=== PATIENT | female | born 1970 | race Caucasian/White ===

== ENCOUNTER → 2016-05-25 | Outpatient (REF) ==
[~2016-05-25] MED LIST: CLAR10CA3 PO; FURO40TA2 PO; GABA600T PO; IMIT50TA PO; MIRA3350 PO; PERC5TAB6 PO; VITA10002 PO; VITA50003 PO; albuterol inh INH
--- NOTE | 2016-05-25 11:01 | REP ---
CERVICAL SPINE SERIES: Three views. HISTORY: Disability. Degenerative disc disease. FINDINGS: Oxygen tubing is seen. The patient declined to remove metallic earrings for the exam. Lateral view demonstrates normal alignment. There is degenerative disc narrowing at C5-6 and C6-7 and mild discogenic spurring is seen at C4-5. There is mild osteoarthritic facet hypertrophy bilaterally at C2-3, C3-4 and C4-5. Open mouth odontoid view is unremarkable. IMPRESSION: Degenerative disc and osteoarthritic facet changes. Signed by Don Magaña MD 05/25/2016 08:10 P
--- NOTE | 2016-05-25 11:05 | REP ---
Lumbar spine series: Three views. History: Degenerative disc disease. Disability. Comparison study December 23, 2013. Findings: There is a dextroconvex scoliotic curve in the lumbar spine on the AP radiograph. Lumbar vertebral body heights are preserved. Alignment is otherwise normal. There is degenerative disc narrowing at L3-4 and L4-5 with early discogenic spurring at these two levels as well as at L5-S1. Pedicles and posterior elements appear intact. There is no evidence of spondylolysis or spondylolisthesis. Sacrum and SI joints are intact. Psoas margins are symmetric. There are clips in right upper quadrant of the abdomen. Impression: Scoliosis and degenerative disc changes. Findings unchanged radiographically from December 23, 2013. Signed by Don Magaña MD 05/25/2016 08:10 P
== END ==
LOC: M SMT 09:44
PROVIDERS: ATTEND Internal Medicine
DX: Z02.1 Encounter for pre-employment examination (principal)

== ENCOUNTER → 2016-06-01 | Outpatient (REF) | payer OTHER ==
[2016-06-01 11:07] LABS: BASO % 0.6 % (0.0-1.0); EOS # 0.1 K/mm3 (0.0-0.50); EOS % 1.5 % (0.0-3.0); LARGE UNSTAINED CELL # 0.2 K/mm3 (0.0-0.4); LARGE UNSTAINED CELL % 2.4 % (0.0-4.0); LYMPH # 1.1 K/mm3 (1.5-4.5); LYMPH % 16.2 % (24.0-44.0); MEAN CORPUSCULAR HEMOGLOBIN 34.2 pg (27.0-33.0); MEAN CORPUSCULAR HGB CONC 35.4 g/dl (32.0-36.5); MEAN CORPUSCULAR VOLUME 96.6 fl (80.0-96.0); MONO # 0.3 K/mm3 (0.0-0.8); MONO % 4.7 % (0.0-5.0); NEUTROPHILS % 74.6 % (36.0-66.0); PLATELET COUNT, AUTOMATED 202 k/mm3 (150-450); RED CELL DISTRIBUTION WIDTH 12.6 % (11.5-14.5); WHITE BLOOD COUNT 6.7 K/mm3 (4.0-10.0)
[2016-06-01 11:30] LABS: ALBUMIN 3.7 GM/DL (3.2-5.2); ALBUMIN/GLOBULIN RATIO 1.06 (1.00-1.93); ALKALINE PHOSPHATASE 82 U/L (45-117); ALT/SGPT 29 U/L (12-78); ANION GAP 9 MEQ/L (8-16); AST/SGOT 15 U/L (15-37); BILIRUBIN,TOTAL 0.3 MG/DL (0.2-1.0); BLOOD UREA NITROGEN 13 MG/DL (7-18); CALCIUM LEVEL 9.3 MG/DL (8.5-10.1); CARBON DIOXIDE LEVEL 33 MEQ/L (21-32); CHLORIDE LEVEL 100 MEQ/L (98-107); CHOLESTEROL LEVEL 219 MG/DL (<200); CREATININE FOR GFR 0.93 MG/DL (0.55-1.02); GLOMERULAR FILTRATION RATE > 60.0 (>58); GLUCOSE, FASTING 121 MG/DL (70-105); POTASSIUM SERUM 3.6 MEQ/L (3.5-5.1); SODIUM LEVEL 142 MEQ/L (136-145); TOTAL PROTEIN 7.2 GM/DL (6.4-8.2); TRIGLYCERIDES LEVEL 108 MG/DL (<150)
[2016-06-01 11:50] LABS: ERYTHROCYTE SEDIMENTATION RATE 17 mm/hr (0-20)
== END ==
LOC: M SFHCPLAZ 07:59
PROVIDERS: ATTEND Family Medicine
DX: D86.9 Sarcoidosis, unspecified (principal); E55.9 Vitamin D deficiency, unspecified; R73.01 Impaired fasting glucose

== ENCOUNTER 2016-06-02 08:04 | Outpatient (RCR) | payer OTHER | END 2016-06-07 | disposition home or self-care (01) | LOC: M PR 08:04 | PROVIDERS: ATTEND Physician Assistant Medical | DX: Z51.89 Encounter for other specified aftercare (principal); D86.9 Sarcoidosis, unspecified ==

== ENCOUNTER 2016-06-29 09:30 | Outpatient (RCR) | payer OTHER | END 2016-07-05 | LOC: M PR 09:30 | PROVIDERS: ATTEND Physician Assistant Medical | DX: D86.9 Sarcoidosis, unspecified (principal) ==

== ENCOUNTER 2016-08-03 12:55 | Outpatient (RCR) | payer OTHER | END 2016-08-05 | LOC: M PR 12:55 | PROVIDERS: ATTEND Physician Assistant Medical | DX: Z51.89 Encounter for other specified aftercare (principal); D86.9 Sarcoidosis, unspecified ==

== ENCOUNTER 2016-08-08 09:39 | Outpatient (RCR) | payer OTHER | END 2016-09-04 | LOC: M PR 09:39 | PROVIDERS: ATTEND Physician Assistant Medical | DX: Z51.89 Encounter for other specified aftercare (principal); D86.9 Sarcoidosis, unspecified ==

== ENCOUNTER → 2016-08-26 | Outpatient (REF) | payer OTHER ==
[2016-08-26 11:49] LABS: BASO % 0.7 % (0.0-1.0); EOS # 0.1 K/mm3 (0.0-0.50); EOS % 1.8 % (0.0-3.0); LARGE UNSTAINED CELL # 0.1 K/mm3 (0.0-0.4); LARGE UNSTAINED CELL % 2.5 % (0.0-4.0); MEAN CORPUSCULAR HEMOGLOBIN 34.6 pg (27.0-33.0); MEAN CORPUSCULAR VOLUME 98.9 fl (80.0-96.0); MONO # 0.4 K/mm3 (0.0-0.8); MONO % 6.9 % (0.0-5.0); NEUTROPHILS # 3.5 K/mm3 (1.8-7.7); NEUTROPHILS % 70.2 % (36.0-66.0); PLATELET COUNT, AUTOMATED 226 k/mm3 (150-450); RED CELL DISTRIBUTION WIDTH 13.1 % (11.5-14.5)
[2016-08-26 12:02] LABS: ALBUMIN 3.6 GM/DL (3.2-5.2); ALKALINE PHOSPHATASE 85 U/L (45-117); ALT/SGPT 31 U/L (12-78); ANION GAP 9 MEQ/L (8-16); AST/SGOT 23 U/L (15-37); BILIRUBIN,TOTAL 0.4 MG/DL (0.2-1.0); BLOOD UREA NITROGEN 15 MG/DL (7-18); CALCIUM LEVEL 9.2 MG/DL (8.5-10.1); CARBON DIOXIDE LEVEL 29 MEQ/L (21-32); CHLORIDE LEVEL 102 MEQ/L (98-107); CREATININE FOR GFR 0.95 MG/DL (0.55-1.02); GLOMERULAR FILTRATION RATE > 60.0 (>58); GLUCOSE, FASTING 120 MG/DL (70-105); POTASSIUM SERUM 3.7 MEQ/L (3.5-5.1); SODIUM LEVEL 140 MEQ/L (136-145); TOTAL PROTEIN 7.2 GM/DL (6.4-8.2)
[2016-08-26 12:09] LABS: VITAMIN B12 LEVEL 776 PG/ML (247-911)
[2016-08-26 12:15] LABS: ERYTHROCYTE SEDIMENTATION RATE 20 mm/hr (0-20)
== END ==
LOC: M SFHCPLAZ 09:40
PROVIDERS: ATTEND Family Medicine
DX: D86.9 Sarcoidosis, unspecified (principal); R73.01 Impaired fasting glucose; E53.8 Deficiency of other specified B group vitamins

== ENCOUNTER 2016-09-14 13:35 | Outpatient (RCR) | payer OTHER ==
[2016-09-15] MEDS ORDERED: BREO1INH3 INH ×3 (06:55→11:45)
[2016-09-15] MEDS ORDERED: PANT40TA2 PO (06:56)
[2016-09-15] MEDS ORDERED: CONT1TAB PO (06:57)
[2016-09-15] MEDS ORDERED: PRED10PA PO (06:59)
[2016-09-15] MEDS ORDERED: PRED5EL PO (06:59)
[2016-09-15] MEDS ORDERED: plaquenil PO (07:02)
[2016-09-15] MEDS ORDERED: VITA200028 PO (07:04)
[2016-09-15] MEDS ORDERED: NEUR600T PO (07:06)
[2016-09-15] MEDS ORDERED: LATA5OPD OD (07:07)
[2016-09-15] MEDS ORDERED: DORZ2SOL5 OU (07:08)
[2016-09-15] MEDS ORDERED: INCR1INH IN ×2 (07:09→07:59)
[2016-09-15] MEDS ORDERED: CYMB60CA3 PO (07:10)
[2016-09-15] MEDS ORDERED: ALBU17IN INH (07:59)
[2016-09-15] MEDS ORDERED: IPRASOL4 INH (07:59)
[2016-09-15] MEDS ORDERED: XALA0.002 OU (07:59)
[2016-09-15] MEDS ORDERED: DRIS50002 PO (11:29)
[2016-09-15] MEDS ORDERED: HYDR200T3 PO (11:45)
[2016-09-15] MEDS ORDERED: PRED1TABL PO (11:45)
[2016-09-15] MEDS ORDERED: PRED5TA PO (11:45)
[2016-09-15] MEDS ORDERED: SYSTSOL14 OU (11:46)
[2016-09-15] MEDS ORDERED: GABA-282 PO (12:11)
[2016-09-22] MEDS ORDERED: PRED20TA PO (10:30)
== END 2016-10-05 ==
LOC: M PR 13:35
PROVIDERS: ATTEND Physician Assistant Medical
DX: Z51.89 Encounter for other specified aftercare (principal); D86.9 Sarcoidosis, unspecified

== ENCOUNTER 2016-09-15 06:30 | Inpatient (IN) | payer OTHER ==
[~2016-09-15] VITALS: Ht 167.6 cm; Wt 94.2 kg
[2016-09-15] MEDS ORDERED: dexameTHASONE 20 MG/5 ML VIAL (J1100) IV ONE (06:45)
[2016-09-15] MEDS ORDERED: BREO1INH3 INH ×3 (06:55→11:45)
[2016-09-15] MEDS ORDERED: PANT40TA2 PO (06:56)
[2016-09-15] MEDS: LEVALBUTEROL 1.25 MG/0.5 ML CONCENTRATE NEB INH SCH ×3 (06:57→07:15)
[2016-09-15] MEDS ORDERED: CONT1TAB PO (06:57)
[2016-09-15] MEDS ORDERED: PRED10PA PO (06:59)
[2016-09-15] MEDS ORDERED: PRED5EL PO (06:59)
[2016-09-15] MEDS ORDERED: plaquenil PO (07:02)
[2016-09-15] MEDS ORDERED: VITA200028 PO (07:04)
[2016-09-15 07:05] LABS: VENOUS BASE EXCESS 2.2 (-2.0-2.0); VENOUS O2 SATURATION 80.8 % (60.0-80.0); VENOUS PARTIAL PRESSURE CO2 41.3 mmHg (38.0-50.0); VENOUS PARTIAL PRESSURE O2 43.9 mmHg (30.0-50.0)
[2016-09-15] MEDS ORDERED: NEUR600T PO (07:06)
[2016-09-15 07:07] LABS: BASO # 0.1 K/mm3 (0.0-0.2); BASO % 0.7 % (0.0-1.0); EOS # 0.2 K/mm3 (0.0-0.50); EOS % 1.6 % (0.0-3.0); LARGE UNSTAINED CELL # 0.2 K/mm3 (0.0-0.4); LARGE UNSTAINED CELL % 1.7 % (0.0-4.0); LYMPH # 1.2 K/mm3 (1.5-4.5); LYMPH % 11.2 % (24.0-44.0); MEAN CORPUSCULAR HEMOGLOBIN 35.3 pg (27.0-33.0); MEAN CORPUSCULAR HGB CONC 35.2 g/dl (32.0-36.5); MEAN CORPUSCULAR VOLUME 100.3 fl (80.0-96.0); MONO # 0.5 K/mm3 (0.0-0.8); MONO % 5.2 % (0.0-5.0); NEUTROPHILS # 7.3 K/mm3 (1.8-7.7); NEUTROPHILS % 79.6 % (36.0-66.0); PLATELET COUNT, AUTOMATED 220 k/mm3 (150-450); RED CELL DISTRIBUTION WIDTH 13.2 % (11.5-14.5); WHITE BLOOD COUNT 9.1 K/mm3 (4.0-10.0)
[2016-09-15] MEDS ORDERED: LATA5OPD OD (07:07)
[2016-09-15] MEDS ORDERED: DORZ2SOL5 OU (07:08)
[2016-09-15] MEDS ORDERED: INCR1INH IN ×2 (07:09→07:59)
[2016-09-15] MEDS ORDERED: CYMB60CA3 PO (07:10)
--- NOTE | 2016-09-15 07:24 | REP ---
Clinical: Dyspnea. Comparison: 12/03/2015. Findings: Cardiac silhouette is normal for portable technique. Mild hilar prominence along with chronic stable interstitial changes are similar to prior examination and consistent with the previously given history of sarcoidosis. No focal acute consolidation, obvious effusion or pneumothorax identified. Skeletal structures intact. Impression: Chronic stable changes consistent with the previously given history of sarcoidosis. No obvious acute cardiopulmonary process appreciated. Signed by Je Li MD 09/15/2016 07:15 A
[2016-09-15 07:26] LABS: ANION GAP 10 MEQ/L (8-16); BLOOD UREA NITROGEN 12 MG/DL (7-18); CALCIUM LEVEL 8.6 MG/DL (8.5-10.1); CARBON DIOXIDE LEVEL 26 MEQ/L (21-32); CHLORIDE LEVEL 104 MEQ/L (98-107); GLOMERULAR FILTRATION RATE > 60.0 (>58); GLUCOSE, FASTING 118 MG/DL (70-105); POTASSIUM SERUM 3.6 MEQ/L (3.5-5.1); SODIUM LEVEL 140 MEQ/L (136-145)
[2016-09-15] MEDS ORDERED: IPRATROPIUM 0.5MG/ALBUTEROL 2.5MG INH SOL UD 3ML (DUONEB)(J7620) NEB ONE ×2 (07:30→11:30)
[2016-09-15] MEDS ORDERED: XALA0.002 OU (07:59)
[2016-09-15] MEDS ORDERED: IPRASOL4 INH (07:59)
[2016-09-15] MEDS ORDERED: ALBU17IN INH (07:59)
[2016-09-15] MEDS: FUROSEMIDE 40 MG TAB PO SCH (09:00)
[2016-09-15 09:43] VITALS: O2SAT 89
[2016-09-15] MEDS ORDERED: DRIS50002 PO (11:29)
[2016-09-15] MEDS ORDERED: PRED5TA PO (11:45)
[2016-09-15] MEDS ORDERED: HYDR200T3 PO (11:45)
[2016-09-15] MEDS ORDERED: PRED1TABL PO (11:45)
[2016-09-15] MEDS ORDERED: SYSTSOL14 OU (11:46)
[2016-09-15] MEDS ORDERED: GABA-282 PO (12:11)
[2016-09-15] MEDS: IPRATROPIUM 0.5MG/ALBUTEROL 2.5MG INH SOL UD 3ML (DUONEB)(J7620) NEB SCH ×2 (14:00→20:04)
[2016-09-15] MEDS: GABAPENTIN 300 MG CAP PO SCH ×2 (15:14→20:51)
[2016-09-15] MEDS: DULoxetine 30 MG CAP (CYMBALTA) PO SCH (15:14)
[2016-09-15] MEDS: LevoFLOXacin IV 750 MG in APPROPRIATE DILUENT 1 EA IV SCH (15:14)
[2016-09-15 15:15] VITALS: BP 126/73
[2016-09-15 16:20] VITALS: BP 119/69
[2016-09-15] MEDS: POLYVINYL ALCOHOL OPHTH SOLN 15 ML(LIQUITEARS) OU SCH ×2 (18:34→20:51)
[2016-09-15] MEDS: HYDROXYCHLOROQUINE 200 MG TAB PO SCH (18:34)
[2016-09-15] MEDS: ACETAMINOPHEN TAB 650MG DOSE (2X325MG) PO PRN (19:46)
[2016-09-15] MEDS: CODEINE SULFATE 30 MG TAB PO PRN (19:46)
[2016-09-15 19:56] VITALS: BP 116/69
[2016-09-15] MEDS: CLOBETASOL PROP 0.05% OINT 30 GM TOP SCH (20:51)
[2016-09-15] MEDS: COSOPT OCUMETER PLUS 10ML (DORZOLAMIDE/TIMOLOL) OU SCH (20:51)
[2016-09-15] MEDS: LATANOPROST 0.005% OPHTH SOLN 2.5 ML OU SCH (20:51)
[2016-09-15] MEDS: PANTOPRAZOLE 40MG TAB (PROTONIX) PO SCH (20:51)
[2016-09-15] MEDS: methylPREDNISolone INJ 40 MG/1 ML VIAL (J2920) IV SCH (20:51)
--- NOTE | 2016-09-15 21:27 | HPE ---
DATE OF ADMISSION: 09/15/2016 CHIEF COMPLAINT: Cough and dyspnea. HISTORY: A 45-year-old female with history of sarcoidosis. Has been deemed to be inactive at this time with the sarcoid, and prednisone dose has begun to be tapered. About 11 days ago her dose was reduced from 10 mg of prednisone to 9, and it seems unlikely that this tiny decrement for an inactive sarcoid patient would suddenly trigger increased cough and wheezing, rather it seems more likely that this episode may represent an acute respiratory illness. In fact, her significant other is with her today and admits that he had a bronchitic productive cough beginning about 2 days ago. In the emergency department (ED) she was demonstrably hypoxic with exertion, following oxygen saturations on routine oxygen delivery of 2 liters per nasal cannula and extremely dyspneic with minimal exertion, prolonged paroxysmal with coughing, which left her breathless for several minutes. Was observed on multiple occasions; therefore, it was felt patient too ill to be discharged home with current findings. PAST MEDICAL HISTORY: Includes: 1. 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 2. History of degenerative joint disease of lumbar spine with lower extremity radiculopathy, L3-4, L4-5 disc bulges with compressions and L5-S1 disc herniation with compression. 3. Chronic constipation. 4. History of smoking addiction. 5. Chronic hoarseness. 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 Barron. 6. Impaired fasting glucose. 7. Recurrent gingivostomatitis. 8. Grade 1 diastolic dysfunction with trace pericardial effusion in March 2016 with a transthoracic echocardiogram (TTE) performed in hospital, Dr. Oliver. SURGICAL HISTORY: Includes cholecystectomy for benign disease in July 2015. FAMILY HISTORY: Remarkable for parents with stroke and myocardial infarction (NE) history and mother with osteoporosis. No cancers in first-degree relatives. Patient is a former smoker who quit a few years ago, which may be part of the reason for weight gain in addition to prednisone his. CURRENT MEDICATIONS: Include: - Incruse Ellipta one inhalation daily - DuoNeb - Protonix 20 mg two tablets twice a day - Breo Ellipta one puff daily - prednisone 9 mg daily - Plaquenil 200 mg twice a day - Ventolin as needed - Xalatan 0.005% - gabapentin 600 mg three times a day - Cymbalta 60 mg daily - Contrave 8/90 one tablet twice a day - calcium with D one by mouth twice a day - oxygen 2 liters - vitamin B12 at 1 mg daily - MiraLax 17 grams twice a day as required - loratadine 10 mg daily - Drisdol 50,000 weekly - Cosopt 22.3/6.8 one drop to affected eye twice a day - Imitrex 25 mg as needed migraine; repeat after 1 hour if needed - furosemide 40 mg daily - flaxseed 1000 mg daily - She had a Tdap booster in 2012. - She had influenza vaccine in January 2013. - She had Prevnar vaccine in March 2016. REVIEW OF SYSTEMS: At this time, she has no headache or dizziness. She has no substernal chest pain. No nausea, vomiting, diarrhea, constipation, dysuria, frequency, numbness, tingling, loss of consciousness, fainting, or numbness. No trouble with ambulation. No seizures. No syncope. Illness began essentially overnight with severe cough this morning, which brought her to the ED. Her athletics director is Dr. Tidwell in [place]. Her engineer design and construction is Dr. Mcgee. Cloth Baler is Dr. Cho. Dr. Cox is her primary care provider. PHYSICAL EXAMINATION: Blood pressure 107/63, pulse is 98, respiratory 24, temperature 99.2, 94% room air. Most recent 89% earlier today. She was observed to desaturate with exertion. GENERAL: Well-developed, well-nourished, obese white female in mild respiratory distress. She is pleasant, cooperative. HEENT: Shows minimal cushingoid changes. No oral lesions. No neck mass or thyroid enlargement. HEART: Regular rhythm without murmurs, gallops, or rubs. LUNGS: Good air flow throughout. Minimally reduced airflow observed with no rales and no wheezing. At the end of her coughing paroxysm, she has expiratory noises, which were heard best over her larynx. Speech was clear. Voice was not particularly hoarse. ABDOMEN: Obese. No guarding, mass, or rebound. No costovertebral angle (CVA) tenderness. EXTREMITIES: Show no edema. Pulses are intact throughout. She does have circular rash on her right anterior thigh and left forearm, which is more of an oval rash. These are minimally indurated, slightly reddened, and she says intermittently itchy. NEUROLOGIC: Alert, pleasant. No focal deficits. Mood is neutral. Affect appropriate. LABORATORY DATA: White count 9100, hemoglobin 13.9, somewhat macrocytic. Indices 100.3 MCV. Electrolytes were within normal limits. Glucose 118. CK was negative, MB negative. Troponin negative. BNP 47. Venous blood gas showed pH of 7.429, pCO2 of 41.3, pO2 of 43.9. Results are entirely normal. IMAGING STUDIES: Chest x-ray: Chronic stable changes. Mild hilar prominence noted on exam. These are chronic findings; nothing new. ASSESSMENT: Increased respiratory symptoms with cough, hypoxia with exertion, paroxysms of cough suggestive of bronchitis. Cannot rule out pertussis at this time despite recent immunization. PLAN: Respiratory panel was sent. Sputum culture and sensitivity was sent. We will prescribe Levaquin 750 IV every 24 hours pending culture results. Admit with oxygen support and nebulizers. Prednisone steroid will be boosted temporarily. Anticipate rapid return to tapering schedule with prednisone once this acute presumably infectious episode has resumed. Exacerbation of sarcoid seems less likely considering her recent quiescent state and abrupt onset of symptoms.
[2016-09-15 23:55] VITALS: BP 127/65
[2016-09-16] MEDS: IPRATROPIUM 0.5MG/ALBUTEROL 2.5MG INH SOL UD 3ML (DUONEB)(J7620) NEB SCH ×4 (02:16→20:27)
[2016-09-16 04:00] VITALS: BP 103/65
[2016-09-16] MEDS: ALBUTEROL SULFATE 2.5 MG/0.5 ML INH NEB SOLN NEB PRN ×2 (04:08→11:14)
[2016-09-16] MEDS: ACETAMINOPHEN TAB 650MG DOSE (2X325MG) PO PRN ×2 (05:13→08:59)
[2016-09-16 05:41] LABS: BASO # 0.1 K/mm3 (0.0-0.2); BASO % 0.7 % (0.0-1.0); LARGE UNSTAINED CELL # 0.1 K/mm3 (0.0-0.4); LARGE UNSTAINED CELL % 1.1 % (0.0-4.0); LYMPH # 0.4 K/mm3 (1.5-4.5); LYMPH % 3.8 % (24.0-44.0); MEAN CORPUSCULAR HEMOGLOBIN 35.1 pg (27.0-33.0); MEAN CORPUSCULAR HGB CONC 34.8 g/dl (32.0-36.5); MEAN CORPUSCULAR VOLUME 100.8 fl (80.0-96.0); MONO # 0.4 K/mm3 (0.0-0.8); MONO % 4.6 % (0.0-5.0); NEUTROPHILS # 7.9 K/mm3 (1.8-7.7); NEUTROPHILS % 89.8 % (36.0-66.0); PLATELET COUNT, AUTOMATED 198 k/mm3 (150-450); WHITE BLOOD COUNT 8.8 K/mm3 (4.0-10.0)
[2016-09-16 06:04] LABS: ALBUMIN 3.2 GM/DL (3.2-5.2); ALBUMIN/GLOBULIN RATIO 0.78 (1.00-1.93); ALKALINE PHOSPHATASE 72 U/L (45-117); ALT/SGPT 25 U/L (12-78); ANION GAP 10 MEQ/L (8-16); AST/SGOT 13 U/L (15-37); BILIRUBIN,TOTAL 0.4 MG/DL (0.2-1.0); BLOOD UREA NITROGEN 12 MG/DL (7-18); CALCIUM LEVEL 8.9 MG/DL (8.5-10.1); CARBON DIOXIDE LEVEL 25 MEQ/L (21-32); CHLORIDE LEVEL 104 MEQ/L (98-107); CREATININE FOR GFR 0.86 MG/DL (0.55-1.02); GLOMERULAR FILTRATION RATE > 60.0 (>58); GLUCOSE, FASTING 140 MG/DL (70-105); MAGNESIUM LEVEL 1.9 MG/DL (1.8-2.4); POTASSIUM SERUM 3.7 MEQ/L (3.5-5.1); SODIUM LEVEL 139 MEQ/L (136-145); TOTAL PROTEIN 7.3 GM/DL (6.4-8.2)
[2016-09-16] MEDS: CODEINE SULFATE 30 MG TAB PO PRN ×2 (06:15→15:59)
[2016-09-16 07:46] VITALS: BP 132/80
[2016-09-16 08:00] VITALS: BP 132/80
[2016-09-16] MEDS: PANTOPRAZOLE 40MG TAB (PROTONIX) PO SCH ×2 (08:58→21:18)
[2016-09-16] MEDS: LORATADINE 10 MG TAB PO SCH (08:58)
[2016-09-16] MEDS: FUROSEMIDE 40 MG TAB PO SCH (08:58)
[2016-09-16] MEDS: GABAPENTIN 300 MG CAP PO SCH ×3 (08:59→21:18)
[2016-09-16] MEDS: CYANOCOBALAMIN 500 MCG TAB PO SCH (08:59)
[2016-09-16] MEDS: HYDROXYCHLOROQUINE 200 MG TAB PO SCH ×2 (08:59→15:58)
[2016-09-16] MEDS: COSOPT OCUMETER PLUS 10ML (DORZOLAMIDE/TIMOLOL) OU SCH ×2 (08:59→21:18)
[2016-09-16] MEDS: POLYVINYL ALCOHOL OPHTH SOLN 15 ML(LIQUITEARS) OU SCH ×4 (09:00→21:18)
[2016-09-16] MEDS: ENOXAPARIN 40 MG/0.4 ML SYRINGE (J1650) SC SCH (09:00)
[2016-09-16] MEDS: methylPREDNISolone INJ 40 MG/1 ML VIAL (J2920) IV SCH ×2 (09:00→21:18)
[2016-09-16] MEDS: CLOBETASOL PROP 0.05% OINT 30 GM TOP SCH ×2 (09:01→21:19)
[2016-09-16] MEDS: BUDESONIDE 0.5 MG/2 ML INHALATION SUSPENSION INH SCH ×2 (11:14→20:27)
[2016-09-16 11:30] VITALS: BP 105/58
[2016-09-16] MEDS: DULoxetine 30 MG CAP (CYMBALTA) PO SCH (15:58)
[2016-09-16] MEDS: LevoFLOXacin IV 750 MG in APPROPRIATE DILUENT 1 EA IV SCH (15:59)
[2016-09-16 16:00] VITALS: BP 110/62
[2016-09-16 19:50] VITALS: BP 129/71
[2016-09-16] MEDS: LATANOPROST 0.005% OPHTH SOLN 2.5 ML OU SCH (21:18)
[2016-09-17] VITALS (7 sets, daily range): BP systolic 104–141; BP diastolic 62–89
[2016-09-17] MEDS ORDERED: SLF 3 ML SYR IV PRN (02:00)
[2016-09-17] MEDS: IPRATROPIUM 0.5MG/ALBUTEROL 2.5MG INH SOL UD 3ML (DUONEB)(J7620) NEB SCH ×4 (02:32→20:19)
[2016-09-17] MEDS: SLF 3 ML SYR IV SCH ×3 (04:35→21:11)
[2016-09-17] MEDS: BUDESONIDE 0.5 MG/2 ML INHALATION SUSPENSION INH SCH ×2 (07:48→20:19)
[2016-09-17] MEDS: COSOPT OCUMETER PLUS 10ML (DORZOLAMIDE/TIMOLOL) OU SCH ×2 (08:22→21:09)
[2016-09-17] MEDS: POLYVINYL ALCOHOL OPHTH SOLN 15 ML(LIQUITEARS) OU SCH ×4 (08:22→21:09)
[2016-09-17] MEDS: methylPREDNISolone INJ 40 MG/1 ML VIAL (J2920) IV SCH ×2 (08:22→21:09)
[2016-09-17] MEDS: LORATADINE 10 MG TAB PO SCH (08:22)
[2016-09-17] MEDS: ENOXAPARIN 40 MG/0.4 ML SYRINGE (J1650) SC SCH (08:23)
[2016-09-17] MEDS: FUROSEMIDE 40 MG TAB PO SCH (08:23)
[2016-09-17] MEDS: CYANOCOBALAMIN 500 MCG TAB PO SCH (08:23)
[2016-09-17] MEDS: PANTOPRAZOLE 40MG TAB (PROTONIX) PO SCH ×2 (08:23→21:08)
[2016-09-17] MEDS: GABAPENTIN 300 MG CAP PO SCH ×3 (08:23→21:08)
[2016-09-17] MEDS: HYDROXYCHLOROQUINE 200 MG TAB PO SCH ×2 (08:23→16:15)
[2016-09-17] MEDS: CLOBETASOL PROP 0.05% OINT 30 GM TOP SCH ×2 (08:24→21:11)
[2016-09-17] MEDS ORDERED: VITAMIN D 50,000 UNITS CAPSULE (ERGOCALCIFEROL 1.25MG) PO SCH (09:00)
[2016-09-17] MEDS: CODEINE SULFATE 30 MG TAB PO PRN ×2 (11:10→21:54)
--- NOTE | 2016-09-17 11:14 | IPNPDOC ---
Subjective Date Seen The patient was seen on 09/17/16. Subjective Chief Complaint/HPI The patient is a 45-year-old female admitted with a reason for visit of Bronchitits Sarcoidosis Of Lung. Events since last encounter Patient states she is on her home requirements of O2 (2L by [place]). However, she is quite short of breath with exertion. States she just got up to use the bathroom, and she had a coughing spell which took her breath away. Constitutional: Denies: Chills, Fever Skin: Denies: Rash Pulmonary: Reports: Dyspnea, Cough Cardiovascular: Denies: Chest Pain, Palpitations Gastrointestinal: Denies: Nausea, Vomiting, Diarrhea, Constipation Hematologic: Denies: Bruising Psych: Reports: Mood Normal Objective Physical Examination General Exam: Positive: Alert, Cooperative, Other (not in distress, but breathing heavily and is uncomfortable) Neck Exam: Positive: Supple, Negative: JVD Chest Exam: Positive: Normal air movement, Wheezing Heart Exam: Positive: Rate Normal, Negative: Tachycardic Telemetry: Positive: No significant arrhythmia Abdomen Exam: Positive: Normal bowel sounds, Soft, Negative: Tenderness Extremity Exam: Negative: Edema Skin Exam: Positive: Nl turgor and temperature, Negative: Rash Psych Exam: Positive: Mental status NL, Mood NL Assessment /Plan Problems (1) Bronchitis Problem Text: Likely secondary to rhinovirus. On Levaquin to cover for possible bacterial etiology as she is chronically on steroids. Shortness of breath persists, though she is on her home dose of O2. I asked nursing to walk her with a pulse ox, so we can document her O2 needs while active. (2) Sarcoidosis of lung Problem Text: Steroid dose increased; home steroid dose decreased shortly prior to admission. On Plaquenil. (3) Depression Status: Chronic Problem Text: On Cymbalta; also for chronic pain. (4) Chronic pain Status: Chronic Problem Text: From sarcoid and DJD. On Cymbalta and gabapentin. Plan/VTE VTE Prophylaxis Ordered?: Yes VS, I&O, 24H, Fishbone Vital Signs/I&O Vital Signs Date Time Temp Pulse Resp B/P (MAP) Pulse Ox O2 Delivery O2 Flow Rate FiO2 09/17/16 08:03 Nasal Cannula 2.0 09/17/16 08:00 97.5 66 20 141/89 (106) 100 I&O- Last 24 Hours up to 6 AM 09/17/16 06:00 Intake Total 2400 ml Output Total 1625 ml Balance 775 ml Laboratory Data Microbiology Microbiology 09/15/16 Respiratory Virus Panel (PCR) ([facility]) - Final, Complete Human Rhinovirus/Enterovirus 09/15/16 Gram Stain - Final, Complete 09/15/16 Sputum Culture - Final, Complete JU CHOUDHURY DO September 17, 2016 11:14
[2016-09-17] MEDS: DULoxetine 30 MG CAP (CYMBALTA) PO SCH (16:15)
[2016-09-17] MEDS: LevoFLOXacin IV 750 MG in APPROPRIATE DILUENT 1 EA IV SCH (16:15)
[2016-09-17] MEDS: LATANOPROST 0.005% OPHTH SOLN 2.5 ML OU SCH (21:09)
[2016-09-18] MEDS: IPRATROPIUM 0.5MG/ALBUTEROL 2.5MG INH SOL UD 3ML (DUONEB)(J7620) NEB SCH ×4 (02:01→20:04)
[2016-09-18] MEDS ORDERED: methylPREDNISolone INJ 40 MG/1 ML VIAL (J2920) As Ordered ONE (02:21)
[2016-09-18] MEDS ORDERED: methylPREDNISolone INJ 40 MG/1 ML VIAL (J2920) IV ONE (02:30)
[2016-09-18 04:51] VITALS: BP 128/74
[2016-09-18] MEDS: ACETAMINOPHEN TAB 650MG DOSE (2X325MG) PO PRN (05:03)
[2016-09-18] MEDS: SLF 3 ML SYR IV SCH ×3 (05:03→21:14)
[2016-09-18 05:17] LABS: MEAN CORPUSCULAR HEMOGLOBIN 34.8 pg (27.0-33.0); MEAN CORPUSCULAR HGB CONC 34.3 g/dl (32.0-36.5); MEAN CORPUSCULAR VOLUME 101.6 fl (80.0-96.0); WHITE BLOOD COUNT 6.8 K/mm3 (4.0-10.0)
[2016-09-18] MEDS: BUDESONIDE 0.5 MG/2 ML INHALATION SUSPENSION INH SCH ×2 (07:35→20:04)
[2016-09-18 08:00] VITALS: BP 114/76
[2016-09-18] MEDS: methylPREDNISolone INJ 40 MG/1 ML VIAL (J2920) IV SCH ×2 (08:54→21:13)
[2016-09-18] MEDS: COSOPT OCUMETER PLUS 10ML (DORZOLAMIDE/TIMOLOL) OU SCH ×2 (08:54→21:12)
[2016-09-18] MEDS: CYANOCOBALAMIN 500 MCG TAB PO SCH (08:54)
[2016-09-18] MEDS: PANTOPRAZOLE 40MG TAB (PROTONIX) PO SCH ×2 (08:54→21:13)
[2016-09-18] MEDS: GABAPENTIN 300 MG CAP PO SCH ×3 (08:54→21:13)
[2016-09-18] MEDS: HYDROXYCHLOROQUINE 200 MG TAB PO SCH ×2 (08:54→16:08)
[2016-09-18] MEDS: FUROSEMIDE 40 MG TAB PO SCH (08:54)
[2016-09-18] MEDS: LORATADINE 10 MG TAB PO SCH (08:54)
[2016-09-18] MEDS: POLYVINYL ALCOHOL OPHTH SOLN 15 ML(LIQUITEARS) OU SCH ×4 (08:54→21:12)
[2016-09-18] MEDS: CLOBETASOL PROP 0.05% OINT 30 GM TOP SCH ×2 (08:54→21:13)
[2016-09-18] MEDS: ENOXAPARIN 40 MG/0.4 ML SYRINGE (J1650) SC SCH (08:55)
[2016-09-18 12:00] VITALS: BP 113/62
[2016-09-18 16:00] VITALS: BP 122/77
[2016-09-18] MEDS: LevoFLOXacin IV 750 MG in APPROPRIATE DILUENT 1 EA IV SCH (16:08)
[2016-09-18] MEDS: DULoxetine 30 MG CAP (CYMBALTA) PO SCH (16:08)
[2016-09-18 20:13] VITALS: BP 150/65
[2016-09-18] MEDS: LATANOPROST 0.005% OPHTH SOLN 2.5 ML OU SCH (21:12)
--- NOTE | 2016-09-18 21:24 | IPNPDOC ---
Subjective Date Seen The patient was seen on 09/18/16. Subjective Chief Complaint/HPI The patient is a 45-year-old female admitted with a reason for visit of Bronchitits Sarcoidosis Of Lung. Events since last encounter Patient remains dyspneic with any exertion. Yesterday I asked nursing to ambulate her with pulse ox, and she was only able to walk 40 feet without desatting. She isn't sure if she feels much better today. Constitutional: Denies: Chills, Fever Eyes: Denies: Pain, Vision change ENT: Reports: Head Aches Skin: Denies: Rash Pulmonary: Reports: Dyspnea, Cough Cardiovascular: Denies: Chest Pain, Palpitations Gastrointestinal: Denies: Nausea, Vomiting, Diarrhea, Constipation Genitourinary: Denies: Dysuria Psych: Reports: Mood Normal Objective Physical Examination General Exam: Positive: Alert, Cooperative Neck Exam: Positive: Supple, Negative: JVD Chest Exam: Positive: Normal air movement, Wheezing Heart Exam: Positive: Rate Normal, Negative: Tachycardic Telemetry: Positive: No significant arrhythmia Abdomen Exam: Positive: Normal bowel sounds, Soft, Negative: Tenderness Extremity Exam: Negative: Edema Skin Exam: Positive: Nl turgor and temperature, Negative: Rash Psych Exam: Positive: Mental status NL, Mood NL Assessment /Plan Problems (1) Bronchitis Problem Text: 09/18 -- Patient only able to ambulate 40 feet without desatting. Improving slowly. Likely secondary to rhinovirus. On Levaquin to cover for possible bacterial etiology as she is chronically on steroids. Shortness of breath persists, though she is on her home dose of O2. I asked nursing to walk her with a pulse ox, so we can document her O2 needs while active. (2) Sarcoidosis of lung Problem Text: Steroid dose increased; home steroid dose decreased shortly prior to admission. On Plaquenil. (3) Depression Status: Chronic Problem Text: On Cymbalta; also for chronic pain. (4) Chronic pain Status: Chronic Problem Text: From sarcoid and DJD. On Cymbalta and gabapentin. Plan/VTE VTE Prophylaxis Ordered?: Yes VS, I&O, 24H, Fishbone Vital Signs/I&O Vital Signs Date Time Temp Pulse Resp B/P (MAP) Pulse Ox O2 Delivery O2 Flow Rate FiO2 09/18/16 20:13 96.2 99 22 150/65 (93) 97 Nasal Cannula 2.0 I&O- Last 24 Hours up to 6 AM 09/18/16 06:00 Intake Total 1980 ml Output Total 2300 ml Balance -320 ml Laboratory Data CBC/BMP Laboratory Tests 09/18/16 04:34 Red Blood Count 3.94 L, Mean Corpuscular Volume 101.6 H, Mean Corpuscular Hemoglobin 34.8 H, Mean Corpuscular Hemoglobin Concent 34.3, Red Cell Distribution Width 13.0 Microbiology Microbiology 09/15/16 Respiratory Virus Panel (PCR) ([facility]) - Final, Complete Human Rhinovirus/Enterovirus 09/15/16 Gram Stain - Final, Complete 09/15/16 Sputum Culture - Final, Complete JU CHOUDHURY DO September 18, 2016 21:24
[2016-09-18 23:59] VITALS: BP 139/76
[2016-09-19] MEDS: CODEINE SULFATE 30 MG TAB PO PRN ×2 (00:08→12:01)
[2016-09-19] MEDS: IPRATROPIUM 0.5MG/ALBUTEROL 2.5MG INH SOL UD 3ML (DUONEB)(J7620) NEB SCH ×4 (02:41→20:23)
[2016-09-19 03:45] VITALS: BP 123/71
[2016-09-19] MEDS: SLF 3 ML SYR IV SCH ×3 (06:00→22:59)
[2016-09-19] MEDS: BUDESONIDE 0.5 MG/2 ML INHALATION SUSPENSION INH SCH ×2 (07:07→20:23)
[2016-09-19 08:00] VITALS: BP 146/66
[2016-09-19] MEDS: LORATADINE 10 MG TAB PO SCH (09:55)
[2016-09-19] MEDS: methylPREDNISolone INJ 40 MG/1 ML VIAL (J2920) IV SCH (09:55)
[2016-09-19] MEDS: FUROSEMIDE 40 MG TAB PO SCH (09:56)
[2016-09-19] MEDS: PANTOPRAZOLE 40MG TAB (PROTONIX) PO SCH ×2 (09:56→21:09)
[2016-09-19] MEDS: CYANOCOBALAMIN 500 MCG TAB PO SCH (09:57)
[2016-09-19] MEDS: ENOXAPARIN 40 MG/0.4 ML SYRINGE (J1650) SC SCH (09:58)
[2016-09-19] MEDS: GABAPENTIN 300 MG CAP PO SCH ×3 (09:58→21:10)
[2016-09-19] MEDS: COSOPT OCUMETER PLUS 10ML (DORZOLAMIDE/TIMOLOL) OU SCH ×2 (10:02→21:10)
[2016-09-19] MEDS: POLYVINYL ALCOHOL OPHTH SOLN 15 ML(LIQUITEARS) OU SCH ×4 (10:02→21:10)
[2016-09-19] MEDS: CLOBETASOL PROP 0.05% OINT 30 GM TOP SCH ×2 (10:03→21:11)
[2016-09-19] MEDS: HYDROXYCHLOROQUINE 200 MG TAB PO SCH ×2 (10:03→16:38)
--- NOTE | 2016-09-19 11:42 | IPNPDOC ---
Subjective Date Seen The patient was seen on 09/19/16. Subjective Chief Complaint/HPI The patient is a 45-year-old female admitted with a reason for visit of Bronchitits Sarcoidosis Of Lung. Events since last encounter + for rhinovirus. Continues with exertional hypoxia, wheezing, cough and dyspnea. Requesting shower today. Constitutional: Denies: Chills, Fever, Night Sweats Pulmonary: Reports: Dyspnea, Cough Cardiovascular: Denies: Chest Pain, Palpitations, Orthopnea, Paroxysmal Noc. Dyspnea, Lt Headedness Gastrointestinal: Denies: Nausea, Vomiting, Abdominal Pain, Diarrhea, Constipation Genitourinary: Denies: Dysuria, Frequency, Incontinence, Retention Psych: Reports: Mood Normal, Denies: Depression, Memory Issues Objective Physical Examination General Exam: Positive: Alert, Cooperative Neck Exam: Positive: Supple, Negative: JVD Chest Exam: Positive: Normal air movement, Wheezing Heart Exam: Positive: Rate Normal, Negative: Tachycardic Telemetry: Positive: No significant arrhythmia Abdomen Exam: Positive: Normal bowel sounds, Soft, Negative: Tenderness Extremity Exam: Negative: Edema Skin Exam: Positive: Nl turgor and temperature, Negative: Rash Psych Exam: Positive: Mental status NL, Mood NL Assessment /Plan Problems (1) Bronchitis Problem Text: 09/19/16: continues with wheeze and desaturation with activity. Given hx of sarcoidosis, will have longer recovery. 09/18 -- Patient only able to ambulate 40 feet without desatting. Improving slowly. Likely secondary to rhinovirus. On Levaquin to cover for possible bacterial etiology as she is chronically on steroids. Shortness of breath persists, though she is on her home dose of O2. I asked nursing to walk her with a pulse ox, so we can document her O2 needs while active. (2) Sarcoidosis of lung Problem Text: 09/21/16. Continues with diffuse wheeze and Dyspnea. Increased solumedrol to 80 mg IV q 8 hrs. Steroid dose increased; home steroid dose decreased shortly prior to admission. On Plaquenil. (3) Depression Status: Chronic Problem Text: On Cymbalta; also for chronic pain. (4) Chronic pain Status: Chronic Problem Text: From sarcoid and DJD. On Cymbalta and gabapentin. Plan/VTE VTE Prophylaxis Ordered?: Yes Plan Attending note: I saw and evaluated the patient, and agree with the plan of care as discussed and documented by Leslie Cowan. Patient continues to have significant bilateral expiratory wheezing. Likely multifactorial from patient COPD and chronic sarcoid. She is on max dose of Breo. Recommended the patient follow-up with Dr. Cox to discuss any potential additions to prevent future exacerbations her sarcoid. Mi Izaguirre MD VS, I&O, 24H, Fishbone Vital Signs/I&O Vital Signs Date Time Temp Pulse Resp B/P (MAP) Pulse Ox O2 Delivery O2 Flow Rate FiO2 09/19/16 08:00 97.0 108 18 146/66 (92) 94 Nasal Cannula 2.0 I&O- Last 24 Hours up to 6 AM 09/19/16 06:00 Intake Total 1560 ml Output Total 2850 ml Balance -1290 ml Laboratory Data Microbiology Microbiology 09/15/16 Respiratory Virus Panel (PCR) ([facility]) - Final, Complete Human Rhinovirus/Enterovirus 09/15/16 Gram Stain - Final, Complete 09/15/16 Sputum Culture - Final, Complete Debi Cowan SIGN ERECTOR September 19, 2016 11:42 MI IZAGUIRRE MD September 20, 2016 17:02
[2016-09-19 12:00] VITALS: BP 126/73
[2016-09-19 16:00] VITALS: BP 120/76
[2016-09-19] MEDS: DULoxetine 30 MG CAP (CYMBALTA) PO SCH (16:38)
[2016-09-19] MEDS: methylPREDNISolone INJ 125 MG/2 ML VIAL (J2930) IV SCH (16:39)
[2016-09-19] MEDS: LevoFLOXacin 750 MG TABLET PO SCH (16:44)
[2016-09-19 18:30] VITALS: BP 146/70
[2016-09-19] MEDS: LATANOPROST 0.005% OPHTH SOLN 2.5 ML OU SCH (21:10)
[2016-09-19 22:00] VITALS: BP 142/99
[2016-09-20] MEDS: methylPREDNISolone INJ 125 MG/2 ML VIAL (J2930) IV SCH ×3 (01:00→17:08)
[2016-09-20] MEDS: IPRATROPIUM 0.5MG/ALBUTEROL 2.5MG INH SOL UD 3ML (DUONEB)(J7620) NEB SCH ×4 (01:29→19:55)
[2016-09-20] MEDS: SLF 3 ML SYR IV SCH ×3 (05:51→21:32)
[2016-09-20] MEDS: LevoFLOXacin 750 MG TABLET PO SCH (05:52)
[2016-09-20 06:00] VITALS: BP_SYST 125; BP_SYST 160; BP_DIAS 60; BP_DIAS 77
[2016-09-20] MEDS: BUDESONIDE 0.5 MG/2 ML INHALATION SUSPENSION INH SCH ×2 (07:39→19:55)
--- NOTE | 2016-09-20 08:19 | IPNPDOC ---
Subjective Date Seen The patient was seen on 09/20/16. Subjective Chief Complaint/HPI The patient is a 45-year-old female admitted with a reason for visit of Bronchitits Sarcoidosis Of Lung. Events since last encounter Significant improvement in symptoms with increased dosing of Solumedrol. Tolerating nebs well. anxious to get OOB. Constitutional: Denies: Chills, Fever, Night Sweats Skin: Denies: Rash, Lesions, Breakdown Pulmonary: Reports: Dyspnea, Cough Cardiovascular: Denies: Chest Pain, Palpitations, Orthopnea, Paroxysmal Noc. Dyspnea, Lt Headedness Gastrointestinal: Denies: Nausea, Vomiting, Abdominal Pain, Diarrhea, Constipation Genitourinary: Denies: Dysuria, Frequency, Incontinence, Retention Psych: Reports: Mood Normal, Denies: Depression, Memory Issues Objective Physical Examination General Exam: Positive: Alert, Cooperative Neck Exam: Positive: Supple, Negative: JVD Chest Exam: Positive: Normal air movement, Wheezing (sporadic) Heart Exam: Positive: Rate Normal, Negative: Tachycardic Telemetry: Positive: No significant arrhythmia Abdomen Exam: Positive: Normal bowel sounds, Soft, Negative: Tenderness Extremity Exam: Negative: Edema Skin Exam: Positive: Nl turgor and temperature, Negative: Rash Psych Exam: Positive: Mental status NL, Mood NL Assessment /Plan Problems (1) Bronchitis Problem Text: 09/20/16: plan to get OOB. PT eval. Slowly improving. 09/19/16: continues with wheeze and desaturation with activity. Given hx of sarcoidosis, will have longer recovery. 09/18 -- Patient only able to ambulate 40 feet without desatting. Improving slowly. Likely secondary to rhinovirus. On Levaquin to cover for possible bacterial etiology as she is chronically on steroids. Shortness of breath persists, though she is on her home dose of O2. I asked nursing to walk her with a pulse ox, so we can document her O2 needs while active. (2) Sarcoidosis of lung Problem Text: 09/22/2016: Improved with increased steroid dosing. plan on 1 more day at 80 mg. Drop to 60 mg IV q 8hrs then to po prednisone. 09/21/16. Continues with diffuse wheeze and Dyspnea. Increased solumedrol to 80 mg IV q 8 hrs. Steroid dose increased; home steroid dose decreased shortly prior to admission. On Plaquenil. (3) Depression Status: Chronic Problem Text: On Cymbalta; also for chronic pain. (4) Chronic pain Status: Chronic Problem Text: From sarcoid and DJD. On Cymbalta and gabapentin. Plan/VTE VTE Prophylaxis Ordered?: Yes Plan Attending note: I saw and evaluated the patient, and agree with plan of care as discussed and documented above. Patient is improving on escalated steroids. She will need to be discharged on a taper, given length of steroid treatment and doses needed. Krzysztof Carlos MD VS, I&O, 24H, Fishbone Vital Signs/I&O Vital Signs Date Time Temp Pulse Resp B/P (MAP) Pulse Ox O2 Delivery O2 Flow Rate FiO2 09/20/16 06:00 97.7 60 18 125/77 (93) 97 Nasal Cannula 2.0 I&O- Last 24 Hours up to 6 AM 09/20/16 06:00 Intake Total 1140 ml Output Total 4750 ml Balance -3610 ml Laboratory Data Microbiology Microbiology 09/15/16 Respiratory Virus Panel (PCR) ([facility]) - Final, Complete Human Rhinovirus/Enterovirus 09/15/16 Gram Stain - Final, Complete 09/15/16 Sputum Culture - Final, Complete Debi Cowan NANOTECHNICIAN September 20, 2016 08:19 KRZYSZTOF CARLOS MD September 20, 2016 17:03
[2016-09-20] MEDS: GABAPENTIN 300 MG CAP PO SCH ×3 (08:38→21:31)
[2016-09-20] MEDS: FUROSEMIDE 40 MG TAB PO SCH (08:38)
[2016-09-20] MEDS: CYANOCOBALAMIN 500 MCG TAB PO SCH (08:38)
[2016-09-20] MEDS: HYDROXYCHLOROQUINE 200 MG TAB PO SCH ×2 (08:39→15:37)
[2016-09-20] MEDS: LORATADINE 10 MG TAB PO SCH (08:39)
[2016-09-20] MEDS: PANTOPRAZOLE 40MG TAB (PROTONIX) PO SCH ×2 (08:39→21:31)
[2016-09-20] MEDS: COSOPT OCUMETER PLUS 10ML (DORZOLAMIDE/TIMOLOL) OU SCH ×2 (08:40→21:31)
[2016-09-20] MEDS: CLOBETASOL PROP 0.05% OINT 30 GM TOP SCH ×2 (08:40→21:31)
[2016-09-20] MEDS: POLYVINYL ALCOHOL OPHTH SOLN 15 ML(LIQUITEARS) OU SCH ×4 (08:40→21:31)
[2016-09-20] MEDS: ENOXAPARIN 40 MG/0.4 ML SYRINGE (J1650) SC SCH (08:40)
[2016-09-20] MEDS ORDERED: BISACODYL 10 MG SUPP PR ONE (09:00)
[2016-09-20 09:48] LABS: MEAN CORPUSCULAR HEMOGLOBIN 35.6 pg (27.0-33.0); MEAN CORPUSCULAR HGB CONC 34.9 g/dl (32.0-36.5); RED CELL DISTRIBUTION WIDTH 12.3 % (11.5-14.5); WHITE BLOOD COUNT 9.1 K/mm3 (4.0-10.0)
[2016-09-20 10:23] LABS: ALBUMIN 3.3 GM/DL (3.2-5.2); ALBUMIN/GLOBULIN RATIO 0.94 (1.00-1.93); ALKALINE PHOSPHATASE 67 U/L (45-117); ALT/SGPT 28 U/L (12-78); ANION GAP 8 MEQ/L (8-16); AST/SGOT 12 U/L (15-37); BILIRUBIN,TOTAL 0.3 MG/DL (0.2-1.0); BLOOD UREA NITROGEN 17 MG/DL (7-18); CALCIUM LEVEL 8.6 MG/DL (8.5-10.1); CARBON DIOXIDE LEVEL 30 MEQ/L (21-32); CHLORIDE LEVEL 99 MEQ/L (98-107); CREATININE FOR GFR 0.92 MG/DL (0.55-1.02); GLOMERULAR FILTRATION RATE > 60.0 (>58); GLUCOSE, FASTING 144 MG/DL (70-105); POTASSIUM SERUM 3.8 MEQ/L (3.5-5.1); SODIUM LEVEL 137 MEQ/L (136-145); TOTAL PROTEIN 6.8 GM/DL (6.4-8.2)
[2016-09-20 14:00] VITALS: BP 146/85
[2016-09-20] MEDS: DULoxetine 30 MG CAP (CYMBALTA) PO SCH (15:35)
[2016-09-20] MEDS: MIRALAX *UNIT DOSE* 17GM PACKET PO PRN (16:00)
[2016-09-20] MEDS: LATANOPROST 0.005% OPHTH SOLN 2.5 ML OU SCH (21:31)
[2016-09-20 22:00] VITALS: BP 127/73
[2016-09-20] MEDS ORDERED: NYSTATIN 100,000 UNITS/GM TOPICAL PWD 15 GM TOP PRN (23:45)
[2016-09-21] MEDS: methylPREDNISolone INJ 125 MG/2 ML VIAL (J2930) IV SCH ×3 (01:10→17:13)
[2016-09-21] MEDS: IPRATROPIUM 0.5MG/ALBUTEROL 2.5MG INH SOL UD 3ML (DUONEB)(J7620) NEB SCH ×4 (01:53→20:24)
[2016-09-21 06:00] VITALS: BP 109/64
[2016-09-21] MEDS: SLF 3 ML SYR IV SCH ×3 (06:10→20:53)
[2016-09-21] MEDS: LevoFLOXacin 750 MG TABLET PO SCH (06:10)
[2016-09-21 06:29] LABS: MEAN CORPUSCULAR HEMOGLOBIN 35.5 pg (27.0-33.0); MEAN CORPUSCULAR HGB CONC 35.1 g/dl (32.0-36.5); MEAN CORPUSCULAR VOLUME 101.1 fl (80.0-96.0); RED CELL DISTRIBUTION WIDTH 12.7 % (11.5-14.5); WHITE BLOOD COUNT 9.8 K/mm3 (4.0-10.0)
[2016-09-21 06:50] LABS: ALBUMIN 3.2 GM/DL (3.2-5.2); ALBUMIN/GLOBULIN RATIO 0.76 (1.00-1.93); ALKALINE PHOSPHATASE 68 U/L (45-117); ALT/SGPT 28 U/L (12-78); ANION GAP 5 MEQ/L (8-16); AST/SGOT 13 U/L (15-37); BILIRUBIN,TOTAL 0.2 MG/DL (0.2-1.0); BLOOD UREA NITROGEN 21 MG/DL (7-18); CALCIUM LEVEL 9.1 MG/DL (8.5-10.1); CARBON DIOXIDE LEVEL 32 MEQ/L (21-32); CHLORIDE LEVEL 100 MEQ/L (98-107); CREATININE FOR GFR 1.01 MG/DL (0.55-1.02); GLOMERULAR FILTRATION RATE > 60.0 (>58); GLUCOSE, FASTING 167 MG/DL (70-105); POTASSIUM SERUM 3.9 MEQ/L (3.5-5.1); SODIUM LEVEL 137 MEQ/L (136-145); TOTAL PROTEIN 7.4 GM/DL (6.4-8.2)
[2016-09-21] MEDS: BUDESONIDE 0.5 MG/2 ML INHALATION SUSPENSION INH SCH ×2 (07:24→20:24)
--- NOTE | 2016-09-21 08:54 | IPNPDOC ---
Subjective Date Seen The patient was seen on 09/21/16. Subjective Chief Complaint/HPI The patient is a 45-year-old female admitted with a reason for visit of Bronchitits Sarcoidosis Of Lung. Events since last encounter Continues to slowly improve. Constitutional: Denies: Chills, Fever, Night Sweats Pulmonary: Reports: Dyspnea, Cough Cardiovascular: Denies: Chest Pain, Palpitations, Orthopnea, Paroxysmal Noc. Dyspnea, Lt Headedness Gastrointestinal: Denies: Nausea, Vomiting, Abdominal Pain, Diarrhea, Constipation Genitourinary: Denies: Dysuria, Frequency, Incontinence, Retention Psych: Reports: Mood Normal, Denies: Depression, Memory Issues Objective Physical Examination General Exam: Positive: Alert, Cooperative Neck Exam: Positive: Supple, Negative: JVD Chest Exam: Positive: Normal air movement, Negative: Wheezing Heart Exam: Positive: Rate Normal, Negative: Tachycardic Telemetry: Positive: No significant arrhythmia Abdomen Exam: Positive: Normal bowel sounds, Soft, Negative: Tenderness Extremity Exam: Negative: Edema Skin Exam: Positive: Nl turgor and temperature, Negative: Rash Psych Exam: Positive: Mental status NL, Mood NL Assessment /Plan Problems (1) Bronchitis Problem Text: 09/21/2016: weaning down on Solumedrol to 60 mg IV q 8 hrs after am dose. 09/20/16: plan to get OOB. PT eval. Slowly improving. 09/19/16: continues with wheeze and desaturation with activity. Given hx of sarcoidosis, will have longer recovery. 09/18 -- Patient only able to ambulate 40 feet without desatting. Improving slowly. Likely secondary to rhinovirus. On Levaquin to cover for possible bacterial etiology as she is chronically on steroids. Shortness of breath persists, though she is on her home dose of O2. I asked nursing to walk her with a pulse ox, so we can document her O2 needs while active. (2) Sarcoidosis of lung Problem Text: 09/20/2016: Improved with increased steroid dosing. plan on 1 more day at 80 mg. Drop to 60 mg IV q 8hrs then to po prednisone. 09/19/16. Continues with diffuse wheeze and Dyspnea. Increased solumedrol to 80 mg IV q 8 hrs. Steroid dose increased; home steroid dose decreased shortly prior to admission. On Plaquenil. (3) Depression Status: Chronic Problem Text: On Cymbalta; also for chronic pain. (4) Chronic pain Status: Chronic Problem Text: From sarcoid and DJD. On Cymbalta and gabapentin. Plan/VTE VTE Prophylaxis Ordered?: Yes Plan Attending note: I saw and evaluated the patient, and agree with plan of care as discussed and documented by Leslie Cowan. Patient is doing well. Minimal wheezing on exam today. Will plan on discharging on pred taper. Mi Carlos MD VS, I&O, [facility] Vital Signs/I&O Vital Signs Date Time Temp Pulse Resp B/P (MAP) Pulse Ox O2 Delivery O2 Flow Rate FiO2 09/21/16 06:00 97.9 67 18 109/64 (79) 96 Nasal Cannula 09/20/16 22:00 2.0 I&O- Last 24 Hours up to 6 AM 09/21/16 05:59 Intake Total 3180 ml Output Total 4350 ml Balance -1170 ml Laboratory Data 24H LABS Laboratory Tests 2 09/20/16 09:36: Anion Gap 8, Glomerular Filtration Rate > 60.0, Blood Urea Nitrogen 17, Creatinine 0.92, Sodium Level 137, Potassium Level 3.8, Chloride Level 99, Carbon Dioxide Level 30, Calcium Level 8.6, Aspartate Amino Transf (AST/SGOT) 12L, Alanine Aminotransferase (ALT/SGPT) 28, Alkaline Phosphatase 67, Total Bilirubin 0.3, Total Protein 6.8, Albumin 3.3, Albumin/Globulin Ratio 0.94L 09/21/16 05:49: Anion Gap 5L, Glomerular Filtration Rate > 60.0, Blood Urea Nitrogen 21H, Creatinine 1.01, Sodium Level 137, Potassium Level 3.9, Chloride Level 100, Carbon Dioxide Level 32, Calcium Level 9.1, Aspartate Amino Transf (AST/SGOT) 13L, Alanine Aminotransferase (ALT/SGPT) 28, Alkaline Phosphatase 68, Total Bilirubin 0.2, Total Protein 7.4, Albumin 3.2, Albumin/Globulin Ratio 0.76L CBC/BMP Laboratory Tests 09/20/16 09:36 Red Blood Count 4.18, Mean Corpuscular Volume 102.0 H, Mean Corpuscular Hemoglobin 35.6 H, Mean Corpuscular Hemoglobin Concent 34.9, Red Cell Distribution Width 12.3, Calcium Level 8.6, Aspartate Amino Transf (AST/SGOT) 12 L, Alanine Aminotransferase (ALT/SGPT) 28, Alkaline Phosphatase 67, Total Bilirubin 0.3, Total Protein 6.8, Albumin 3.3 09/21/16 05:49 Red Blood Count 4.23, Mean Corpuscular Volume 101.1 H, Mean Corpuscular Hemoglobin 35.5 H, Mean Corpuscular Hemoglobin Concent 35.1, Red Cell Distribution Width 12.7, Calcium Level 9.1, Aspartate Amino Transf (AST/SGOT) 13 L, Alanine Aminotransferase (ALT/SGPT) 28, Alkaline Phosphatase 68, Total Bilirubin 0.2, Total Protein 7.4, Albumin 3.2 Microbiology Microbiology 09/15/16 Respiratory Virus Panel (PCR) (MAGGIE) - Final, Complete Human Rhinovirus/Enterovirus 09/15/16 Gram Stain - Final, Complete 09/15/16 Sputum Culture - Final, Complete Debi Cowan PRODUCE CLERK September 21, 2016 08:54 MI CARLOS MD September 23, 2016 15:01
[2016-09-21] MEDS ORDERED: methylPREDNISolone INJ 125 MG/2 ML VIAL (J2930) IV SCH (09:00)
[2016-09-21] MEDS: GABAPENTIN 300 MG CAP PO SCH ×3 (10:16→20:51)
[2016-09-21] MEDS: HYDROXYCHLOROQUINE 200 MG TAB PO SCH ×2 (10:16→15:52)
[2016-09-21] MEDS: CYANOCOBALAMIN 500 MCG TAB PO SCH (10:16)
[2016-09-21] MEDS: LORATADINE 10 MG TAB PO SCH (10:16)
[2016-09-21] MEDS: PANTOPRAZOLE 40MG TAB (PROTONIX) PO SCH ×2 (10:16→20:51)
[2016-09-21] MEDS: POLYVINYL ALCOHOL OPHTH SOLN 15 ML(LIQUITEARS) OU SCH ×4 (10:17→20:51)
[2016-09-21] MEDS: FUROSEMIDE 40 MG TAB PO SCH (10:17)
[2016-09-21] MEDS: COSOPT OCUMETER PLUS 10ML (DORZOLAMIDE/TIMOLOL) OU SCH ×2 (10:18→20:51)
[2016-09-21] MEDS: CLOBETASOL PROP 0.05% OINT 30 GM TOP SCH ×2 (10:18→20:53)
[2016-09-21] MEDS: LATANOPROST 0.005% OPHTH SOLN 2.5 ML OU SCH ×2 (10:18→20:52)
[2016-09-21] MEDS: ENOXAPARIN 40 MG/0.4 ML SYRINGE (J1650) SC SCH (11:32)
[2016-09-21] MEDS: DULoxetine 30 MG CAP (CYMBALTA) PO SCH (15:52)
[2016-09-21] MEDS: MIRALAX *UNIT DOSE* 17GM PACKET PO PRN (21:04)
[2016-09-21 22:00] VITALS: BP 115/74
[2016-09-22] MEDS: methylPREDNISolone INJ 125 MG/2 ML VIAL (J2930) IV SCH ×2 (00:30→08:51)
[2016-09-22] MEDS: IPRATROPIUM 0.5MG/ALBUTEROL 2.5MG INH SOL UD 3ML (DUONEB)(J7620) NEB SCH ×2 (01:32→07:39)
[2016-09-22 06:00] VITALS: BP 110/62
[2016-09-22] MEDS: SLF 3 ML SYR IV SCH (06:00)
[2016-09-22] MEDS: LevoFLOXacin 750 MG TABLET PO SCH (06:29)
[2016-09-22] MEDS: MIRALAX *UNIT DOSE* 17GM PACKET PO PRN (06:40)
[2016-09-22] MEDS: BUDESONIDE 0.5 MG/2 ML INHALATION SUSPENSION INH SCH (07:39)
[2016-09-22 07:59] LABS: MEAN CORPUSCULAR HEMOGLOBIN 35.2 pg (27.0-33.0); MEAN CORPUSCULAR HGB CONC 34.5 g/dl (32.0-36.5); MEAN CORPUSCULAR VOLUME 102.1 fl (80.0-96.0); RED CELL DISTRIBUTION WIDTH 12.2 % (11.5-14.5); WHITE BLOOD COUNT 9.9 K/mm3 (4.0-10.0)
[2016-09-22 08:10] LABS: ALBUMIN 3.2 GM/DL (3.2-5.2); ALBUMIN/GLOBULIN RATIO 0.8 (1.00-1.93); BILIRUBIN,TOTAL 0.4 MG/DL (0.2-1.0); CALCIUM LEVEL 8.8 MG/DL (8.5-10.1); CREATININE FOR GFR 1.06 MG/DL (0.55-1.02); GLOMERULAR FILTRATION RATE 59.4 (>58); POTASSIUM SERUM 3.6 MEQ/L (3.5-5.1); TOTAL PROTEIN 7.2 GM/DL (6.4-8.2)
[2016-09-22] MEDS: LORATADINE 10 MG TAB PO SCH (08:50)
[2016-09-22] MEDS: GABAPENTIN 300 MG CAP PO SCH (08:50)
[2016-09-22] MEDS: ENOXAPARIN 40 MG/0.4 ML SYRINGE (J1650) SC SCH (08:51)
[2016-09-22] MEDS: HYDROXYCHLOROQUINE 200 MG TAB PO SCH (08:51)
[2016-09-22] MEDS: FUROSEMIDE 40 MG TAB PO SCH (08:51)
[2016-09-22] MEDS: CYANOCOBALAMIN 500 MCG TAB PO SCH (08:51)
[2016-09-22] MEDS: PANTOPRAZOLE 40MG TAB (PROTONIX) PO SCH (08:51)
[2016-09-22] MEDS: POLYVINYL ALCOHOL OPHTH SOLN 15 ML(LIQUITEARS) OU SCH (08:52)
[2016-09-22] MEDS: COSOPT OCUMETER PLUS 10ML (DORZOLAMIDE/TIMOLOL) OU SCH (08:52)
[2016-09-22] MEDS: CLOBETASOL PROP 0.05% OINT 30 GM TOP SCH (08:53)
[2016-09-22] MEDS ORDERED: PRED20TA PO (10:30)
[2016-09-22] MEDS ORDERED: predniSONE 20 MG TAB PO SCH (14:00)
--- NOTE | 2016-09-22 16:30 | DSES ---
DATE OF ADMISSION: 09/15/2016 DATE OF DISCHARGE: 09/22/2016 PRIMARY CARE PROVIDER: Saad Cox MD HISTORY OF PRESENT ILLNESS: This is a 45-year-old female with a past medical history of sarcoidosis of the lung which has actually been deemed inactive, had begun to taper her steroid down and then developed an upper respiratory infection and presented to the emergency room with hypoxia and dyspnea. Patient was subsequently admitted. HOSPITAL COURSE: Patient was placed on high dose steroids. Respiratory and virus panel was obtained and patient tested positive to rhinovirus. Patient was placed on Levaquin to cover for possible bacterial etiology and given her chronic use of steroid. Patient's shortness of breath persisted and patient was in need of significantly elevated doses with a very long taper throughout hospitalization. As of today, she has been weaned from 80 mg of Solu-Medrol to 60 mg IV every 8 hours and is requesting discharge home. The patient has been able to ambulate several hundred feet without needing increased oxygen. Is eating and drinking well and has remained afebrile. PHYSICAL EXAMINATION: Today: VITAL SIGNS: Show blood pressure 110/62, oxygen saturation 96% on 2 liters nasal cannula, temperature 98.6, heart rate 71, respiratory rate 16. HEENT: Neck is supple without lymphadenopathy or jugular venous distention (JVD). CARDIOVASCULAR: Heart rate and rhythm are regular. PULMONARY: Lungs are clear. ABDOMEN: Soft and nontender. BILATERAL LOWER EXTREMITIES: Without edema. ASSESSMENT: 1. Rhinovirus. 2. History of sarcoidosis. 3. History of degenerative joint disease. 4. History of chronic constipation. 5. Impaired fasting glucose. 6. Grade 1 diastolic heart dysfunction. PLAN: Patient will be discharged home. Diet is as tolerated. Activity is as tolerated. She will continue her 2 liters nasal cannula oxygenation. PRESCRIPTIONS: Are as follows: Patient will take prednisone 20 mg tablets, she will take 60 mg by mouth every 8 hours for 1 day, she will then take prednisone 40 mg by mouth twice a day for 7 days, 30 mg by mouth twice a day for 7 days, 20 mg by mouth twice a day for 7 days, then 10 mg by mouth twice a day for 7 days. She will then seek further dosing adjustments recommended by her specialist or her primary care provider (PCP) as indicated. CONTINUED MEDICATIONS: Include: - albuterol sulfate two puffs every 4 hours as needed for dyspnea - DuoNebs every 4 hours as needed for shortness of breath - Contrave one tablet by mouth twice a day with meals - vitamin B12 1000 mcg by mouth daily - dorzolamide with timolol one drop both eyes twice a day - duloxetine 60 mg by mouth twice a day - fluticasone with vilanterol (which is Breo Ellipta) one inhalation daily - Lasix 40 mg by mouth daily - gabapentin 300 mg two by mouth three times a day - hydroxychloroquine sulfate 200 mg tablets one by mouth twice a day - Incruse Ellipta 62.5 mcg one inhalation twice a day - Xalatan 0.005% solution one drop both eyes nightly - loratadine 10 mg capsule by mouth daily - pantoprazole 40 mg by mouth twice a day - Systane eye drops both eyes four times a day - vitamin D 50,000 international units by mouth weekly The patient is discharged in stable and satisfactory condition with no further questions at the time of discharge.
== END 2016-09-22 11:59 | disposition home or self-care (01) | DRG 113 ==
LOC: M ED 07:40 → M ED INP 12:40 → M PCU 16:12 → M MSPAV 09-19 18:36
PROVIDERS: ADMIT Family Medicine; ATTEND Family Medicine
DX: J00 Acute nasopharyngitis [common cold] (principal); D86.9 Sarcoidosis, unspecified; B97.89 Other viral agents as the cause of diseases classified elsewhere; M19.90 Unspecified osteoarthritis, unspecified site; K59.00 Constipation, unspecified; Z79.899 Other long term (current) drug therapy; M51.36 Other intervertebral disc degeneration, lumbar region; Z87.891 Personal history of nicotine dependence; Z79.52 Long term (current) use of systemic steroids; F32.9 Major depressive disorder, single episode, unspecified

== ENCOUNTER 2016-10-14 02:31 | Observation (INO) | payer OTHER ==
[~2016-10-14] VITALS: Ht 167.6 cm; Wt 94.3 kg
[~2016-10-14 02:31] MED LIST changes: +ALBU17IN INH; +BREO1INH3 INH; +CONT1TAB PO; +CYMB60CA3 PO; +DORZ2SOL5 OU; +DRIS50002 PO; +GABA-282 PO; +HYDR200T3 PO; +INCR1INH IN; +IPRASOL4 INH; +LATA5OPD OD; +NEUR600T PO; +PANT40TA2 PO; +PRED10PA PO; +PRED1TABL PO; +PRED20TA PO; +PRED5EL PO; +PRED5TA PO; +SYSTSOL14 OU; +VITA200028 PO; +XALA0.002 OU; +plaquenil PO
[2016-10-14] MEDS ORDERED: NYST100024 TOP (02:52)
[2016-10-14] MEDS ORDERED: PRED10TA PO (02:52)
[2016-10-14] MEDS ORDERED: APPL188C PO (02:52)
[2016-10-14] MEDS ORDERED: ONDANSETRON 4MG/2ML VIAL (J2405) IV ONE (04:15)
[2016-10-14] MEDS: MORPHINE 4 MG/ML 1ML SYRINGE IV PRN ×2 (04:30→05:42)
--- NOTE | 2016-10-14 05:15 | REP ---
Clinical: Trauma. Comparison: 08/19/2011. Findings: Innumerable bilateral subpleural noncalcified nodules are appreciated along with reticulonodular interstitial changes primarily noted in the upper lung zones as well as moderate bibasilar fibro atelectatic changes. Findings are relatively chronic and likely progressive and related to the patient's history of sarcoidosis. Underlying acute process cannot be excluded. No pleural effusion or pneumothorax. Tracheobronchial tree is patent. Associated partially calcified mediastinal and hilar adenopathy is also identified and consistent again with a history of sarcoidosis. Thoracic aorta, heart and pericardium appear normal for noncontrast evaluation. Surrounding osseous structures appear intact without evidence for acute trauma/injury. Impression: 1. Presumed chronic/progressive changes as described above consistent with a history of sarcoidosis. 2. Superimposed acute process cannot be excluded. 3. No evidence for trauma and no evidence for acute rib fracture. Signed by Je Li MD 10/14/2016 05:07 A
[2016-10-14 06:21] LABS: BASO % 0.4 % (0.0-1.0); EOS # 0.1 K/mm3 (0.0-0.50); EOS % 0.8 % (0.0-3.0); LARGE UNSTAINED CELL # 0.2 K/mm3 (0.0-0.4); LARGE UNSTAINED CELL % 1.8 % (0.0-4.0); LYMPH # 1.4 K/mm3 (1.5-4.5); LYMPH % 13.7 % (24.0-44.0); MEAN CORPUSCULAR HEMOGLOBIN 34.7 pg (27.0-33.0); MEAN CORPUSCULAR HGB CONC 35.4 g/dl (32.0-36.5); MEAN CORPUSCULAR VOLUME 98.1 fl (80.0-96.0); MONO # 0.7 K/mm3 (0.0-0.8); NEUTROPHILS # 6.8 K/mm3 (1.8-7.7); NEUTROPHILS % 75.4 % (36.0-66.0); PLATELET COUNT, AUTOMATED 209 k/mm3 (150-450); RED CELL DISTRIBUTION WIDTH 13.8 % (11.5-14.5)
[2016-10-14] MEDS ORDERED: SYST1SOL OU (06:32)
[2016-10-14] MEDS ORDERED: PRED5TA PO (06:32)
[2016-10-14] MEDS ORDERED: GABA-282 PO (06:32)
[2016-10-14] MEDS ORDERED: APPLCAP PO (06:32)
[2016-10-14] MEDS ORDERED: REFROIN OU (06:32)
[2016-10-14 06:59] LABS: ANION GAP 11 MEQ/L (8-16); BLOOD UREA NITROGEN 10 MG/DL (7-18); CALCIUM LEVEL 9.6 MG/DL (8.5-10.1); CARBON DIOXIDE LEVEL 27 MEQ/L (21-32); CHLORIDE LEVEL 96 MEQ/L (98-107); CREATININE FOR GFR 0.99 MG/DL (0.55-1.02); GLOMERULAR FILTRATION RATE > 60.0 (>58); GLUCOSE, FASTING 121 MG/DL (70-105); POTASSIUM SERUM 3.7 MEQ/L (3.5-5.1); SODIUM LEVEL 134 MEQ/L (136-145)
[2016-10-14] MEDS ORDERED: BISACODYL 10 MG SUPP PR PRN (08:45)
[2016-10-14] MEDS ORDERED: ALBUTEROL 90 MCG/ACT 8GM HFA INHALER INH PRN (08:45)
[2016-10-14] MEDS ORDERED: IPRATROPIUM 0.5MG/ALBUTEROL 2.5MG INH SOL UD 3ML (DUONEB)(J7620) INH PRN (08:45)
[2016-10-14] MEDS ORDERED: ACETAMINOPHEN 500 MG TAB PO PRN (08:45)
[2016-10-14] MEDS ORDERED: BISACODYL 5 MG TAB PO PRN (08:45)
[2016-10-14] MEDS ORDERED: predniSONE 5 MG TAB PO SCH (09:00)
[2016-10-14] MEDS: SENOKOT S TAB PO SCH ×2 (09:00→20:52)
--- NOTE | 2016-10-14 09:47 | HPE ---
DATE OF PROCEDURE: 10/14/2016 ATTENDING PHYSICIAN[facility] PROVIDER: Dr. Saad Cox. This is a 45-year-old female with past medical history significant for sarcoidosis with pulmonary and joint disease. Patient is HLA-B27 negative. HISTORY: Venous insufficiency to bilateral lower extremities. Lumbar degenerative joint disease. Bilateral lower extremity radiculopathy. Chronic constipation. B12 deficiency. Migraine headaches. Depression/anxiety. Allergic rhinitis. Dyspepsia. Gastroesophageal reflux disease (GERD). Impaired fasting glucose. Grade 1 diastolic heart dysfunction. Presented to the emergency room for complaint of left sided rib pain and back pain. Patient experienced a fall approximately 7 days ago. She states her left knee simply gave out. She fell into her CD stand and onto the floor. States at that time, she did not have severe pain, however, the pain has progressively worsened over the last week and presented to the emergency room today concerned that perhaps she had some rib fractures. Workup in the emergency room included a chest CT which showed presumed chronic progressive changes noting noncalcified nodules along with reticulonodular interstitial changes in the upper lung zones as well as bibasilar fibroatelectatic changes. No pleural effusion or pneumothorax is appreciated. No fractures appreciated or evidence for trauma. Patient was deemed appropriate for admission secondary to chronic pain and difficulty with physical limitations. PAST MEDICAL HISTORY: 1. Sarcoidosis. 2. Degenerative joint disease. 3. Constipation. 4. Vitamin B12 deficiency. 5. Vitamin D deficiency. 6. Impaired fasting glucose. 7. Obstructive sleep apnea. 8. Gastroesophageal reflux disease (GERD). 9. Seasonal allergies. 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 11. Fibromyalgia. CURRENT MEDICATIONS: - Protonix 20 mg by mouth daily - MiraLax powder twice per day - loratadine one tablet by mouth daily - vitamin D 50,000 international units by mouth weekly - Ventolin HFA very 4-6 hours as needed for shortness of breath - DuoNeb four times daily as needed - Plaquenil 200 mg by mouth twice per day - gabapentin 300 mg by mouth three times daily - Cymbalta 60 mg by mouth daily - prednisone 5 mg daily - vitamin B12 - Breo Ellipta 200/25 mcg daily - dorzolamide with timolol eye drops one drop both eyes twice daily - Incruse Ellipta 62.5 mcg daily - Xalatan one drop both eyes daily at bedtime - Nystatin powder topical daily under breasts - Systane eye drops one drop both eyes four times daily as needed - Refresh ointment 1/4 inch to each eye daily PAST SURGICAL HISTORY: 1. Bilateral tubal ligation. 2. Tonsillectomy. 3. Cholecystectomy. 4. Adenoidectomy. 5. Laparoscopy. 6. Bronchoscopy. FAMILY HISTORY: Father is living with a history of stroke and heart attack. Mother living with osteoporosis. SOCIAL HISTORY: Patient is a former smoker. Drinks alcohol one to two drinks four or more times per week. Denies recreational drug use, caffeine use. Patient lives with her significant other. Does not currently work. REVIEW OF SYSTEMS: Patient denies any worsening shortness of breath, dyspnea, chest pain, heart palpitations, headache, blurred vision. Does admit to positive knee weakness which is chronic. Does admit to left rib and left sided back pain and decreased mobility secondary to her pain. PHYSICAL EXAMINATION: Temperature 96.6, heart rate 93, respiratory rate 22, blood pressure 137/89, oxygen saturation 95% on 2 liters nasal cannula. HEENT: Neck is supple without lymphadenopathy or jugular venous distention (JVD). Cardiovascular: Heart rate and rhythm are regular. Pulmonary: Lungs are diminished throughout. Respirations: Easy and unlabored. Abdomen: Soft, nontender. Bilateral lower extremities are without any edema. General: Patient does have a Cushingoid appearance secondary to her chronic steroid use. Musculoskeletal: Patient does have palpable pain along the mid thoracic-lumbar spine area as well as into the left side of the lower ribs. ASSESSMENT: 1. Non-intractable pain secondary to a fall. 2. Sarcoidosis. 3. Chronic oxygen dependency. 4. Gastroesophageal reflux disease. 5. Seasonal allergies. 6. Degenerative joint disease. PLAN: Patient will be admitted for observation. We will evaluate with physical therapy. Routine medications will be continued. IV will be maintained and a saline lock. She will be started on a Lidoderm patch along with hydrocodone as needed to evaluate pain management. Gabapentin was continued for history of degenerative joint disease as well. We are going to hold off on any IV opioids at this point secondary to patient's lung disease and concern for worsening respiratory depression. Patient verbalized understanding and agreement with admission. This was discussed with attending physician, Dr. Kasie Bonilla.
[2016-10-14] MEDS: NORCO, ANEXSIA 5/325MG TABLET (HYDROcodone/ACETAMINOPHEN) PO PRN ×2 (10:16→20:51)
[2016-10-14 11:00] VITALS: BP 130/90
[2016-10-14] MEDS ORDERED: NORCO, ANEXSIA 5/325MG TABLET (HYDROcodone/ACETAMINOPHEN) PO ONE (12:00)
[2016-10-14] MEDS: POLYVINYL ALCOHOL OPHTH SOLN 15 ML(LIQUITEARS) OU PRN (12:28)
[2016-10-14] MEDS: COSOPT OCUMETER PLUS 10ML (DORZOLAMIDE/TIMOLOL) OU SCH ×2 (12:28→20:50)
[2016-10-14] MEDS: LIDOCAINE 5% (LIDODERM) PATCH TD SCH (12:28)
[2016-10-14] MEDS: ENOXAPARIN 40 MG/0.4 ML SYRINGE (J1650) SC SCH (12:28)
[2016-10-14] MEDS: FUROSEMIDE 40 MG TAB PO SCH (12:29)
[2016-10-14] MEDS: GABAPENTIN 300 MG CAP PO SCH (12:29)
[2016-10-14] MEDS: NYSTATIN 100,000 UNITS/GM TOPICAL PWD 15 GM TOP SCH (12:29)
[2016-10-14] MEDS: PANTOPRAZOLE 40MG TAB (PROTONIX) PO SCH ×2 (12:30→20:52)
[2016-10-14] MEDS: CYANOCOBALAMIN 500 MCG TAB PO SCH (12:30)
[2016-10-14] MEDS: HYDROXYCHLOROQUINE 200 MG TAB PO SCH ×2 (12:30→20:52)
[2016-10-14] MEDS: predniSONE 5 MG TAB PO SCH (12:30)
[2016-10-14] MEDS: LORATADINE 10 MG TAB PO SCH (12:30)
[2016-10-14 14:00] VITALS: BP 145/66
[2016-10-14] MEDS: LATANOPROST 0.005% OPHTH SOLN 2.5 ML OU SCH (20:50)
[2016-10-14] MEDS: **NOTE PATIENT COMMENT** MISC XX SCH (20:53)
[2016-10-14 22:00] VITALS: BP 123/83
[2016-10-15] MEDS: NORCO, ANEXSIA 5/325MG TABLET (HYDROcodone/ACETAMINOPHEN) PO PRN ×4 (03:28→23:35)
[2016-10-15 06:00] VITALS: BP 140/70
--- NOTE | 2016-10-15 09:35 | IPNPDOC ---
Subjective Date Seen The patient was seen on 10/15/16. Subjective Chief Complaint/HPI The patient is a 45-year-old female admitted with a reason for visit of Chronic Pain,Fall,Sarcoidosis Of Lung. Events since last encounter Patient states pain is relatively well controlled with hydrocodone and lidoderm patch; she has received 3 doses of hydrocodone in the last 24 hours. She states that PT saw her this morning and walked with her; she states that the physical therapist told her he would come back to see her tomorrow and have her attempt stairs. Patient states she does not feel comfortable going home today and she wants to work with PT tomorrow and then hopefully be discharged home tomorrow. Constitutional: Denies: Chills, Fever ENT: Denies: Head Aches Skin: Denies: Rash Pulmonary: Denies: Dyspnea, Cough Cardiovascular: Reports: Chest Pain (Reports sharp pain in mid-axillary line below level of breasts; pain shoots into left upper chest and back when she takes a deep breath or moves), Denies: Palpitations Gastrointestinal: Denies: Nausea, Vomiting, Abdominal Pain Neurological: Denies: Weakness, Numbness, Change in speech Psych: Reports: Mood Normal Objective Physical Examination General Exam: Positive: Alert, No Acute Distress Eye Exam: Positive: PERRLA, EOMI ENT Exam: Positive: Atraumatic, Mucous membr. moist/pink Neck Exam: Positive: Supple, Negative: thyromegaly Chest Exam: Positive: Clear to auscultation, Normal air movement, Other (left lower rib cage is tender to palpation in mid-axillary line with mild purple scattered bruises in this area), Negative: Rales, Rhonchi, Wheezing Heart Exam: Positive: Rate Normal, Regular Rhythm, Normal S1, Normal S2, Negative: Murmurs Extremity Exam: Negative: Clubbing, Cyanosis, Edema Skin Exam: Negative: Rash Neuro Exam: Positive: Normal Gait, Normal Speech Psych Exam: Positive: Mental status NL, Mood NL, Oriented x 3 Assessment /Plan Problems (1) Rib pain on left side Status: Acute Response to Treatment: Stable Discussed With: Patient Problem Text: Patient states pain is better controlled on hydrocodone and lidoderm patch, but she is not comfortable going home until she attempts stairs with PT. PT note from today is pending. Will plan for discharge tomorrow after patient has seen PT. (2) Fall Status: Acute Response to Treatment: Stable Problem Text: Likely mechanical fall. Patient needs to be cleared by PT as safe for discharge. (3) Sarcoidosis of lung Status: Chronic Response to Treatment: Stable (4) GERD (gastroesophageal reflux disease) Status: Chronic Response to Treatment: Stable (5) Seasonal allergies Status: Chronic Response to Treatment: Stable (6) Degenerative joint disease Status: Chronic Response to Treatment: Stable (7) Depression Status: Chronic Response to Treatment: Stable (8) Iatrogenic [place]'s syndrome Status: Chronic Response to Treatment: Stable Problem Text: Sodium was 134 upon admission. (9) Fibromyalgia Status: Chronic Response to Treatment: Stable Plan/VTE VTE Prophylaxis Ordered?: Yes (prophylactic lovenox) VS, I&O, 24H, Fishbone Vital Signs/I&O Vital Signs Date Time Temp Pulse Resp B/P (MAP) Pulse Ox O2 Delivery O2 Flow Rate FiO2 10/15/16 06:00 96.9 57 18 140/70 (93) 97 Nasal Cannula 2.0 I&O- Last 24 Hours up to 6 AM 10/15/16 06:00 Intake Total 960 ml Output Total 0 ml Balance 960 ml DIA OCASIO MD Oct 15, 2016 09:32
[2016-10-15] MEDS: LIDOCAINE 5% (LIDODERM) PATCH TD SCH (09:51)
[2016-10-15] MEDS: COSOPT OCUMETER PLUS 10ML (DORZOLAMIDE/TIMOLOL) OU SCH ×2 (09:51→20:52)
[2016-10-15] MEDS: ENOXAPARIN 40 MG/0.4 ML SYRINGE (J1650) SC SCH (09:51)
[2016-10-15] MEDS: NYSTATIN 100,000 UNITS/GM TOPICAL PWD 15 GM TOP SCH (09:52)
[2016-10-15] MEDS: LORATADINE 10 MG TAB PO SCH (09:52)
[2016-10-15] MEDS: CYANOCOBALAMIN 500 MCG TAB PO SCH (09:52)
[2016-10-15] MEDS: HYDROXYCHLOROQUINE 200 MG TAB PO SCH ×2 (09:52→20:51)
[2016-10-15] MEDS: SENOKOT S TAB PO SCH ×2 (09:52→20:52)
[2016-10-15] MEDS: predniSONE 5 MG TAB PO SCH (09:52)
[2016-10-15] MEDS: PANTOPRAZOLE 40MG TAB (PROTONIX) PO SCH ×2 (09:52→20:52)
[2016-10-15] MEDS: GABAPENTIN 300 MG CAP PO SCH (09:53)
[2016-10-15] MEDS: FUROSEMIDE 40 MG TAB PO SCH (09:53)
[2016-10-15] MEDS: POLYVINYL ALCOHOL OPHTH SOLN 15 ML(LIQUITEARS) OU PRN (13:03)
[2016-10-15 14:00] VITALS: BP 132/76
[2016-10-15] MEDS: LATANOPROST 0.005% OPHTH SOLN 2.5 ML OU SCH (20:52)
[2016-10-15] MEDS: **NOTE PATIENT COMMENT** MISC XX SCH (20:53)
[2016-10-15 22:00] VITALS: BP 141/78
[2016-10-16] MEDS: NORCO, ANEXSIA 5/325MG TABLET (HYDROcodone/ACETAMINOPHEN) PO PRN (05:41)
[2016-10-16 06:00] VITALS: BP 122/66
[2016-10-16] MEDS: SENOKOT S TAB PO SCH (08:47)
[2016-10-16] MEDS: GABAPENTIN 300 MG CAP PO SCH ×2 (08:47→08:52)
[2016-10-16] MEDS: PANTOPRAZOLE 40MG TAB (PROTONIX) PO SCH (08:48)
[2016-10-16] MEDS: HYDROXYCHLOROQUINE 200 MG TAB PO SCH (08:48)
[2016-10-16] MEDS: FUROSEMIDE 40 MG TAB PO SCH (08:48)
[2016-10-16] MEDS: LORATADINE 10 MG TAB PO SCH (08:48)
[2016-10-16] MEDS: predniSONE 5 MG TAB PO SCH (08:49)
[2016-10-16] MEDS: CYANOCOBALAMIN 500 MCG TAB PO SCH (08:49)
[2016-10-16] MEDS: NYSTATIN 100,000 UNITS/GM TOPICAL PWD 15 GM TOP SCH (08:50)
[2016-10-16] MEDS: POLYVINYL ALCOHOL OPHTH SOLN 15 ML(LIQUITEARS) OU PRN (08:50)
[2016-10-16] MEDS: ENOXAPARIN 40 MG/0.4 ML SYRINGE (J1650) SC SCH (08:50)
[2016-10-16] MEDS: LIDOCAINE 5% (LIDODERM) PATCH TD SCH (08:51)
[2016-10-16] MEDS: COSOPT OCUMETER PLUS 10ML (DORZOLAMIDE/TIMOLOL) OU SCH (08:51)
[2016-10-16] MEDS ORDERED: LIDO5TD TD (10:13)
[2016-10-16] MEDS ORDERED: NORCOTAB PO (10:13)
--- NOTE | 2016-10-16 20:05 | DSES ---
DATE OF ADMISSION: 10/14/2016 DATE OF DISCHARGE: 10/16/2016 PRIMARY CARE PHYSICIAN: Dr. Saad Cox. ATTENDING/DISCHARGING PHYSICIAN: Dr. Fernanda Monahan. PRINCIPAL DIAGNOSIS: Left rib pain secondary to fall. SECONDARY DIAGNOSES: 1. Sarcoidosis. 2. Chronic oxygen dependency. 3. Gastroesophageal reflux disease (GERD). 4. Seasonal allergies. 5. Degenerative joint disease. 6. Iatrogenic Summers syndrome. 7. Obstructive sleep apnea. 8. Fibromyalgia. CONSULTANTS: None. INVASIVE PROCEDURES: None. SUMMARY STATEMENT: This is a 45-year-old woman who presented to the emergency department seven days after a mechanical fall. She states her left knee gave out and she fell from a standing position onto the floor. She did not initially have severe pain; however, pain in her left side where she landed had progressively worsened since then. She underwent a chest CT in the emergency department that showed presumed chronic progressive changes and noncalcified nodules, as well as bibasilar fibro-atelectatic changes but no acute process and no rib fractures were noted. The patient felt she could not go home due to severe pain. Pain was treated with oral hydrocodone/acetaminophen and Lidoderm patch. Pain was fairly well controlled during her hospital stay. She was assessed by physical therapy on her second day in the hospital, and was found to be unsafe for discharge; however, upon reevaluation on day of discharge, she was found safe to go home. All of her other home medications were continued. She was discharged with a seven-day course of hydrocodone and Lidoderm patches. DISCHARGE PLANS: 1. Discharge medications: - acetaminophen/hydrocodone 325/5 mg one tablet by mouth every six hours as needed for pain - lidocaine 5% patch, one patch applied daily for 10 days - albuterol sulfate 200 puffs per 8 grams, two puffs ventilation every four hours as needed for shortness of breath - albuterol/ipratropium one inhalation every four hours as needed for shortness of breath - apple cider vinegar 600 mg capsule 1200 mg by mouth daily - vitamin B12 1000 mcg daily - dorzolamide/timolol solution one drop both eyes twice a day - Breo Ellipta one inhalation daily - furosemide 40 mg by mouth daily - gabapentin 300 mg by mouth daily - hydroxychloroquine 200 mg by mouth twice daily - Incruse 62.5 mcg by inhalation daily - Xalatan 0.005% solution one drop at bedtime - loratadine 10 mg by mouth daily - Nystatin powder daily topical - pantoprazole 40 mg by mouth twice daily - polyethylene glycol 15 mL one drop both eyes four times a day as needed for dry eyes - prednisone 5 mg by mouth daily - Refresh one ointment applied to both eyes at bedtime - vitamin D 50,000 by mouth weekly Stopped medications: Contrave 8/90 mcg one tablet by mouth twice daily; patient advised to hold this while taking hydrocodone/acetaminophen. 2. Followup: With Dr. Cox as previously scheduled on 11/14/2016, or sooner if pain does not resolve. 3. Condition on discharge: Stable. 4. Prognosis: Good. 5. Diet: Regular diet. 6. Activity: As tolerated. 7. Pending studies: None.
== END 2016-10-16 11:20 | disposition home or self-care (01) ==
LOC: M ED 04:08 → M ED INP 08:33 → M MS5PR 10:50
PROVIDERS: ADMIT Family Medicine; ATTEND Family Medicine
DX: R07.81 Pleurodynia (principal); Z91.81 History of falling; D86.9 Sarcoidosis, unspecified; Z99.81 Dependence on supplemental oxygen; E53.8 Deficiency of other specified B group vitamins; J30.2 Other seasonal allergic rhinitis; M15.9 Polyosteoarthritis, unspecified; E24.8 Other Cushing's syndrome; M79.7 Fibromyalgia; R73.01 Impaired fasting glucose; K21.9 Gastro-esophageal reflux disease without esophagitis; Z79.899 Other long term (current) drug therapy; F32.9 Major depressive disorder, single episode, unspecified; G47.33 Obstructive sleep apnea (adult) (pediatric); F41.9 Anxiety disorder, unspecified; I50.30 Unspecified diastolic (congestive) heart failure

== ENCOUNTER 2016-11-03 09:55 | Outpatient (RCR) | payer OTHER ==
[~2016-11-03 09:55] MED LIST changes: +APPL188C PO; +APPLCAP PO; +LIDO5TD TD; +NORCOTAB PO; +NYST1POW9 TOP; +PERC5TAB12 PO; -PERC5TAB6 PO; +PRED10TA2 PO; +REFROIN OU; +SYST1SOL OU; +VITA1CAP40 PO; -VITA50003 PO; -XALA0.002 OU; +XALA0.007 OU
== END 2016-11-04 ==
LOC: M PR 09:55
PROVIDERS: ATTEND Physician Assistant Medical
DX: D86.9 Sarcoidosis, unspecified (principal); Z51.89 Encounter for other specified aftercare

== ENCOUNTER → 2016-11-16 | Outpatient (REF) | payer OTHER ==
[~2016-11-16] MED LIST changes: +MECL-68 PO
[2016-11-16 12:24] LABS: ALBUMIN 3.7 GM/DL (3.2-5.2); ALBUMIN/GLOBULIN RATIO 1.06 (1.00-1.93); ALKALINE PHOSPHATASE 93 U/L (45-117); ALT/SGPT 28 U/L (12-78); ANION GAP 8 MEQ/L (8-16); AST/SGOT 17 U/L (15-37); BILIRUBIN,TOTAL 0.5 MG/DL (0.2-1.0); BLOOD UREA NITROGEN 8 MG/DL (7-18); CALCIUM LEVEL 9.4 MG/DL (8.5-10.1); CARBON DIOXIDE LEVEL 29 MEQ/L (21-32); CHLORIDE LEVEL 98 MEQ/L (98-107); CHOLESTEROL LEVEL 223 MG/DL (<200); CREATININE FOR GFR 0.81 MG/DL (0.55-1.02); GLOMERULAR FILTRATION RATE > 60.0 (>58); GLUCOSE, FASTING 107 MG/DL (70-105); POTASSIUM SERUM 3.7 MEQ/L (3.5-5.1); SODIUM LEVEL 135 MEQ/L (136-145); TOTAL PROTEIN 7.2 GM/DL (6.4-8.2); TRIGLYCERIDES LEVEL 101 MG/DL (<150)
== END ==
LOC: M SFHCPLAZ 09:42
PROVIDERS: ATTEND Family Medicine
DX: E55.9 Vitamin D deficiency, unspecified (principal); D86.9 Sarcoidosis, unspecified; E24.2 Drug-induced Cushing's syndrome

== ENCOUNTER 2016-12-01 07:45 | Outpatient (RCR) | payer OTHER ==
[~2016-12-01 07:45] MED LIST changes: -MECL-68 PO
== END 2016-12-05 ==
LOC: M PR 07:45
PROVIDERS: ATTEND Physician Assistant Medical
DX: Z51.89 Encounter for other specified aftercare (principal); D86.9 Sarcoidosis, unspecified

== ENCOUNTER 2016-12-06 07:53 | Outpatient (RCR) | payer OTHER | END 2017-01-05 | LOC: M PR 07:53 | PROVIDERS: ATTEND Physician Assistant Medical | DX: Z51.89 Encounter for other specified aftercare (principal) ==

== ENCOUNTER → 2016-12-30 | Outpatient (CLI) | payer OTHER ==
[~2016-12-30] MED LIST changes: +MECL-68 PO
--- NOTE | 2016-12-30 14:20 | REP ---
Duplex extremity venous ultrasound: Bilateral lower extremities History: Bilateral lower extremity pain. Findings: The deep veins are anechoic and fully compressible from the groin to the popliteal fossa in the right and left lower extremity. Color flow imaging is homogeneous. Spectral Doppler interrogation demonstrates intact respiratory variation in flow and normal manual augmentation of flow. There is no evidence of deep vein thrombosis. Impression: Negative bilateral lower extremity duplex venous ultrasound. No evidence of deep vein thrombosis. Signed by Don Magaña MD 12/30/2016 02:11 P
== END ==
LOC: M RAD 13:00
PROVIDERS: ATTEND Family Medicine
DX: M79.89 Other specified soft tissue disorders (principal)

== ENCOUNTER → 2017-01-06 | Outpatient (REF) | payer OTHER ==
[2017-01-06 16:17] LABS: BASO % 0.5 % (0.0-1.0); EOS % 0.8 % (0.0-3.0); LARGE UNSTAINED CELL # 0.1 K/mm3 (0.0-0.4); LARGE UNSTAINED CELL % 1.5 % (0.0-4.0); LYMPH # 0.7 K/mm3 (1.5-4.5); LYMPH % 10.3 % (24.0-44.0); MEAN CORPUSCULAR HEMOGLOBIN 35.6 pg (27.0-33.0); MEAN CORPUSCULAR HGB CONC 35.8 g/dl (32.0-36.5); MEAN CORPUSCULAR VOLUME 99.4 fl (80.0-96.0); MONO # 0.4 K/mm3 (0.0-0.8); MONO % 6.3 % (0.0-5.0); NEUTROPHILS # 4.9 K/mm3 (1.8-7.7); NEUTROPHILS % 80.5 % (36.0-66.0); PLATELET COUNT, AUTOMATED 228 k/mm3 (150-450); RED CELL DISTRIBUTION WIDTH 13.5 % (11.5-14.5); WHITE BLOOD COUNT 6.1 K/mm3 (4.0-10.0)
[2017-01-06 17:01] LABS: INR 0.91
[2017-01-06 18:13] LABS: ERYTHROCYTE SEDIMENTATION RATE 23 mm/hr (0-20)
== END ==
LOC: M SFHCPLAZ 13:13
PROVIDERS: ATTEND Family Medicine
DX: M79.89 Other specified soft tissue disorders (principal)

== ENCOUNTER 2017-01-18 14:01 | Emergency (ER) | payer OTHER ==
[~2017-01-18] VITALS: Ht 167.6 cm; Wt 93.2 kg
[~2017-01-18 14:01] MED LIST changes: -MECL-68 PO
[2017-01-18] MEDS ORDERED: MECLIZINE 25 MG TABLET PO ONE (14:45)
[2017-01-18] MEDS ORDERED: NS 1,000 ML IV SCH (14:45)
--- NOTE | 2017-01-18 15:24 | REP ---
CT BRAIN WITHOUT CONTRAST: 01/18/2017. CLINICAL HISTORY: Altered mental status. FINDINGS: There were no prior studies. Soft tissue and bone windows for each slice level show the lateral ventricles midline, symmetric and without dilatation or displacement. Third and fourth ventricles were grossly normal as well. Basal ganglia were symmetric and preserved. The smith-white junction differentiation well maintained. Cortical stripe is preserved. There is no atrophy, hemorrhage, mass, mass effect or edema. Brainstem and cerebellum were grossly intact. Basal cisterns intact. Mastoids, visualized sinuses, skull base and calvarium preserved. IMPRESSION: 1. Normal noncontrast CT brain. Signed by Ovidio Leon MD 01/18/2017 04:22 P
[2017-01-18 15:30] LABS: BASO % 0.8 % (0.0-1.0); EOS # 0.1 K/mm3 (0.0-0.50); EOS % 1.1 % (0.0-3.0); LARGE UNSTAINED CELL # 0.1 K/mm3 (0.0-0.4); LARGE UNSTAINED CELL % 1.3 % (0.0-4.0); LYMPH # 0.7 K/mm3 (1.5-4.5); LYMPH % 10.1 % (24.0-44.0); MEAN CORPUSCULAR HEMOGLOBIN 34.6 pg (27.0-33.0); MEAN CORPUSCULAR HGB CONC 34.8 g/dl (32.0-36.5); MEAN CORPUSCULAR VOLUME 99.5 fl (80.0-96.0); MONO # 0.4 K/mm3 (0.0-0.8); NEUTROPHILS # 5.1 K/mm3 (1.8-7.7); NEUTROPHILS % 80.8 % (36.0-66.0); PLATELET COUNT, AUTOMATED 238 k/mm3 (150-450); RED CELL DISTRIBUTION WIDTH 13.1 % (11.5-14.5); WHITE BLOOD COUNT 6.3 K/mm3 (4.0-10.0)
--- NOTE | 2017-01-18 15:31 | REP ---
Clinical: Altered mental status . Comparison: 09/15/2016 . Technique: PA and lateral. Findings: The mediastinum and cardiac silhouette are normal. The lung santa are clear and without acute consolidation, effusion, or pneumothorax. The skeletal structures are intact and normal. Impression: 1. No acute cardiopulmonary process. Signed by Je Li MD 01/18/2017 03:22 P
[2017-01-18 16:36] LABS: ALBUMIN 3.8 GM/DL (3.2-5.2); ALBUMIN/GLOBULIN RATIO 1.03 (1.00-1.93); ALKALINE PHOSPHATASE 102 U/L (45-117); ALT/SGPT 36 U/L (12-78); ANION GAP 9 MEQ/L (8-16); AST/SGOT 20 U/L (15-37); BILIRUBIN,DIRECT < 0.1 MG/DL (0.0-0.2); BILIRUBIN,TOTAL 0.3 MG/DL (0.2-1.0); BLOOD UREA NITROGEN 13 MG/DL (7-18); CALCIUM LEVEL 8.1 MG/DL (8.5-10.1); CARBON DIOXIDE LEVEL 29 MEQ/L (21-32); CHLORIDE LEVEL 103 MEQ/L (98-107); CREATININE FOR GFR 1.01 MG/DL (0.55-1.02); GLOMERULAR FILTRATION RATE > 60.0 (>58); GLUCOSE, FASTING 103 MG/DL (70-105); POTASSIUM SERUM 3.5 MEQ/L (3.5-5.1); SODIUM LEVEL 141 MEQ/L (136-145); TOTAL PROTEIN 7.5 GM/DL (6.4-8.2)
[2017-01-18 17:18] LABS: METHADONE URINE NEGATIVE (NEGATIVE)
[2017-01-18] MEDS ORDERED: MECL-68 PO (17:20)
[2017-01-18 17:39] VITALS: BP 128/62
--- NOTE | 2017-01-19 07:39 | ECGEPIP ---
Stationary ECG Study [facility] - ED Test Date: 2017-01-18 Pat Name: NICOLE QUACH Department: Room: - Gender: F [employer] Program Coordinator: shilpi : 1970 Requested By: Alec Yoon Order Number: [id number] Reading MD: Sonia Nixon Measurements Intervals [place] Rate: 77 P: 42 NH: 159 QRS: -5 QRSD: 95 T: 13 QT: 400 QTc: 454 Interpretive Statements SINUS RHYTHM POSSIBLE LEFT ATRIAL ENLARGEMENT NSTTW ABNORMALITY PRWP NO PRIOR FOR COMPARISON Electronically Signed On 01-19-2017 7:39:20 EDT by Sonia Nixon
== END 2017-01-18 17:42 | disposition home or self-care (01) ==
LOC: M ED 14:01
DX: H83.09 Labyrinthitis, unspecified ear (principal); G47.30 Sleep apnea, unspecified; G62.9 Polyneuropathy, unspecified; F17.200 Nicotine dependence, unspecified, uncomplicated; Z88.1 Allergy status to other antibiotic agents; Z88.8 Allergy status to other drugs, medicaments and biological substances; Z91.040 Latex allergy status; Z79.899 Other long term (current) drug therapy; Z79.51 Long term (current) use of inhaled steroids

== ENCOUNTER → 2017-01-24 | Outpatient (CLI) | payer OTHER ==
[~2017-01-24] MED LIST changes: +MECL-68 PO
--- NOTE | 2017-01-24 10:11 | REP ---
MRI LEFT FEMUR: Multiple sequences obtained in the axial, coronal and sagittal planes. The very distal end of the femur is not visualized. On the most inferior images, there is mixed signal in the posterior femoral condyles both medially and laterally having the appearance of possible bone infarcts. The remaining more superior femur demonstrates no abnormal marrow signal. There is ill-defined high signal on T2-weighted images along the greater trochanter of the proximal femur most consistent with mild tendinobursitis. Remaining soft tissue structures of the thigh demonstrate no abnormal signal. No abnormal signal is seen in any of the muscles or tendons in the thigh, including the hamstring tendons. No cystic or solid nodule is visualized. IMPRESSION: No evidence of muscle or tendon tear in the left thigh. There are findings most consistent with mild left greater trochanteric tendinobursitis. There are also findings suggesting possible bone infarcts in the posterior medial and lateral femoral condyles. More complete evaluation of the distal femur may be made with MRI of the left knee. Signed by Jordin Erazo MD 01/24/2017 01:46 P
== END ==
LOC: M RAD 06:46
PROVIDERS: ATTEND Family Medicine
DX: M79.89 Other specified soft tissue disorders (principal)

== ENCOUNTER → 2017-02-06 | Outpatient (CLI) | payer OTHER | LOC: M RAD 06:33 | PROVIDERS: ATTEND Family Medicine | DX: M87.052 Idiopathic aseptic necrosis of left femur (principal); Z53.8 Procedure and treatment not carried out for other reasons ==

== ENCOUNTER → 2017-02-13 | Outpatient (CLI) | payer OTHER ==
--- NOTE | 2017-02-13 09:07 | REP ---
BILATERAL KNEE MRI STUDY WITHOUT CONTRAST: HISTORY: Bilateral knee pain. Comparison MRI left femur is from January 24, 2017. Comparison right femur radiographs are from December 23, 2013. TECHNIQUE: Bilateral knee MRI study was accomplished utilizing axial, coronal and sagittal imaging planes with T1, proton density and T2-weighted scans obtained with and without fat saturation in the usual fashion. RIGHT KNEE MRI FINDINGS: There are several well demarcated bone lesions consistent with bone infarcts involving the posterior aspect of the medial femoral condyle, the weightbearing aspect of the medial femoral condyle, and the anterior aspect of the intercondylar notch on the medial side. The largest lesion is posterior measuring anterior intercondylar notch lesion measures 0.7 cm. There is no flattening or other deformity of the osteocartilaginous surface. There is subcortical cyst formation in the posteromedial tibial plateau and fairly extensively in the proximal fibular head. There is an area of marrow edema adjacent to focal severe central patellar chondromalacia. Cortical and medullary bone signal intensity are otherwise normal. There is a small joint effusion. No Hilton's cyst is seen. Patellar and quadriceps tendons are intact. Medial and lateral patellar retinacular structures appear intact. Anterior posterior cruciate ligaments have a normal. There is no evidence of medial or lateral collateral ligament disruption. No visible medial or lateral meniscal tear is seen. There is a small periarticular ganglion cyst posterior to the lateral aspect of the femur in the distal metaphyseal region. This measures 1.1 cm in greatest diameter. There is no visible loose body. IMPRESSION: 1. Focally advanced chondromalacia patella. 2. Femoral condylar notch chondromalacia. 3. Distal medial femoral condyle lesions consistent with osteonecrosis. No fracture or collapse or flattening. 4. Small joint effusion and small periarticular cyst posteriorly and laterally. LEFT KNEE MRI FINDINGS: There are several areas of osteonecrosis seen in the left knee as well including a 2.7 cm lesion in the posterior aspect of the lateral femoral condyle, a 1.8 cm lesion in the posterior aspect of the lateral tibial plateau, a 2.6 cm lesion in the weightbearing surface of the medial femoral condyle and a 2.6 cm lesion in the posterior aspect of the medial femoral condyle. No flattening or collapse is seen. A small joint effusion is noted. No Hilton's cyst is seen. There is focally advanced central patellar chondromalacia with underlying marrow edema. This is seen superiorly. There is chondromalacia of the anterolateral aspect of the femoral trochlear notch. This is moderate. Patellar and quadriceps tendons are intact. Medial and lateral patellar retinacular structures appear intact. Anterior and posterior cruciate ligaments are unremarkable. There is no evidence of medial or lateral collateral ligament disruption. No medial or lateral meniscal tear is seen. Exam is otherwise unremarkable. IMPRESSION: 1. Focally advanced chondromalacia patella superiorly. 2. Moderate chondromalacia in the inner condylar notch. 3. Multiple areas of osteonecrosis distal femur and proximal tibia. Signed by Don Magaña MD 02/13/2017 01:16 P
== END ==
LOC: M RAD 06:44
PROVIDERS: ATTEND Orthopaedic Surgery
DX: M25.561 Pain in right knee (principal); M25.562 Pain in left knee

== ENCOUNTER → 2017-03-24 | Outpatient (REF) | payer OTHER ==
[2017-03-24 12:28] LABS: ALBUMIN 3.8 GM/DL (3.2-5.2); ALBUMIN/GLOBULIN RATIO 1.09 (1.00-1.93); BILIRUBIN,TOTAL 0.5 MG/DL (0.2-1.0); CALCIUM LEVEL 9.2 MG/DL (8.5-10.1); CREATININE FOR GFR 1.13 MG/DL (0.55-1.02); GLOMERULAR FILTRATION RATE 54.9 (>58); POTASSIUM SERUM 3.7 MEQ/L (3.5-5.1); TOTAL PROTEIN 7.3 GM/DL (6.4-8.2)
== END ==
LOC: M SFHCPLAZ 08:23
PROVIDERS: ATTEND Family Medicine
DX: D86.9 Sarcoidosis, unspecified (principal); E55.9 Vitamin D deficiency, unspecified

== ENCOUNTER → 2017-05-05 | Outpatient (REF) | payer OTHER ==
[2017-05-05 11:28] LABS: BASO % 0.7 % (0.0-1.0); EOS # 0.2 10^3/uL (0.0-0.50); EOS % 4.7 % (0.0-3.0); IMMATURE GRANULOCYTE % 0.2 % (0-0); LYMPH # 1.1 10^3/uL (1.5-4.5); LYMPH % 25.6 % (24.0-44.0); MEAN CORPUSCULAR HEMOGLOBIN 33.2 pg (27.0-33.0); MEAN CORPUSCULAR HGB CONC 34.5 g/dl (32.0-36.5); MEAN CORPUSCULAR VOLUME 96.4 fl (80.0-96.0); MONO # 0.3 10^3/uL (0.0-0.8); MONO % 6.7 % (0.0-5.0); NEUTROPHILS # 2.8 10^3/uL (1.8-7.7); NEUTROPHILS % 62.1 % (36.0-66.0); PLATELET COUNT, AUTOMATED 202 10^3/uL (150-450); RED CELL DISTRIBUTION WIDTH 12.6 % (11.5-14.5); WHITE BLOOD COUNT 4.5 10^3/uL (4.0-10.0)
[2017-05-05 11:55] LABS: ALBUMIN 3.4 GM/DL (3.2-5.2); ALBUMIN/GLOBULIN RATIO 1.06 (1.00-1.93); ALKALINE PHOSPHATASE 90 U/L (45-117); ALT/SGPT 23 U/L (12-78); ANION GAP 5 MEQ/L (8-16); AST/SGOT 15 U/L (7-37); BILIRUBIN,TOTAL 0.3 MG/DL (0.2-1.0); BLOOD UREA NITROGEN 16 MG/DL (7-18); CALCIUM LEVEL 8.8 MG/DL (8.5-10.1); CARBON DIOXIDE LEVEL 31 MEQ/L (21-32); CHLORIDE LEVEL 106 MEQ/L (98-107); CREATININE FOR GFR 0.68 MG/DL (0.55-1.02); GLOMERULAR FILTRATION RATE > 60.0 (>58); GLUCOSE, FASTING 99 MG/DL (70-105); POTASSIUM SERUM 3.9 MEQ/L (3.5-5.1); SODIUM LEVEL 142 MEQ/L (136-145); TOTAL PROTEIN 6.6 GM/DL (6.4-8.2)
[2017-05-05 11:56] LABS: ERYTHROCYTE SEDIMENTATION RATE 17 mm/hr (0-20)
== END ==
LOC: M SFHCPLAZ 09:30
DX: D86.9 Sarcoidosis, unspecified (principal); D75.89 Other specified diseases of blood and blood-forming organs

== ENCOUNTER → 2017-05-15 | Outpatient (CLI) | payer OTHER | LOC: M WHC 08:58 | DX: E55.9 Vitamin D deficiency, unspecified (principal); D86.9 Sarcoidosis, unspecified | CPT/HCPCS: 77080 ==

== ENCOUNTER → 2017-07-03 | Outpatient (REF) | payer OTHER ==
[2017-07-03 12:00] LABS: EOS # 0.3 10^3/uL (0.0-0.50); EOS % 6.4 % (0.0-3.0); HEMATOCRIT 40.3 % (36.0-47.0); IMMATURE GRANULOCYTE % 0.2 % (0-3.0); LYMPH % 23.9 % (24.0-44.0); MEAN CORPUSCULAR HEMOGLOBIN 32.6 pg (27.0-33.0); MEAN CORPUSCULAR HGB CONC 34.7 g/dl (32.0-36.5); MEAN CORPUSCULAR VOLUME 93.9 fl (80.0-96.0); MONO # 0.2 10^3/uL (0.0-0.8); MONO % 5.7 % (0.0-5.0); NEUTROPHILS # 2.6 10^3/uL (1.8-7.7); NEUTROPHILS % 62.8 % (36.0-66.0); PLATELET COUNT, AUTOMATED 202 10^3/uL (150-450); RED BLOOD COUNT 4.29 10^6/uL (4.00-5.40); RED CELL DISTRIBUTION WIDTH 12.5 % (11.5-14.5); RETICULOCYTE # 120.5 10^9/L (17-77); RETICULOCYTE % 2.8 % (0.5-1.5); WHITE BLOOD COUNT 4.1 10^3/uL (4.0-10.0)
[2017-07-03 12:11] LABS: ESTIMATED AVERAGE GLUCOSE 105 MG/DL (60-110); HEMOGLOBIN A1c 5.3 %
[2017-07-03 12:15] LABS: ALBUMIN 3.7 GM/DL (3.2-5.2); ALBUMIN/GLOBULIN RATIO 1.09 (1.00-1.93); ALKALINE PHOSPHATASE 112 U/L (45-117); ALT/SGPT 25 U/L (12-78); ANION GAP 7 MEQ/L (8-16); AST/SGOT 16 U/L (7-37); BILIRUBIN,TOTAL 0.3 MG/DL (0.2-1.0); BLOOD UREA NITROGEN 13 MG/DL (7-18); CALCIUM LEVEL 9.3 MG/DL (8.5-10.1); CARBON DIOXIDE LEVEL 29 MEQ/L (21-32); CHLORIDE LEVEL 106 MEQ/L (98-107); CREATININE FOR GFR 0.83 MG/DL (0.55-1.30); FERRITIN 53 NG/ML (8-252); GLOMERULAR FILTRATION RATE > 60.0 (>58); GLUCOSE, FASTING 120 MG/DL (70-100); POTASSIUM SERUM 3.8 MEQ/L (3.5-5.1); SODIUM LEVEL 142 MEQ/L (136-145); TOTAL PROTEIN 7.1 GM/DL (6.4-8.2)
[2017-07-05 00:06] LABS: ANGIOTENSIN 1 CONVERTING ENZYM 64 U/L (14-82)
[2017-07-05 00:06] LABS: INSULIN LEVEL 12.7 uIU/mL (2.6-24.9)
== END ==
LOC: M SFHCPLAZ 09:24
DX: D86.9 Sarcoidosis, unspecified (principal); E53.8 Deficiency of other specified B group vitamins; R73.01 Impaired fasting glucose

== ENCOUNTER → 2017-10-27 | Outpatient (REF) | payer OTHER | LOC: M SFHCPLAZ 09:37 | DX: I50.32 Chronic diastolic (congestive) heart failure (principal); D86.9 Sarcoidosis, unspecified; E53.8 Deficiency of other specified B group vitamins ==

== ENCOUNTER → 2017-11-02 | Outpatient (REF) | payer OTHER ==
[2017-11-02 12:00] LABS: HEMATOCRIT 42.5 % (36.0-47.0)
[2017-11-02 12:41] LABS: ALBUMIN 3.8 GM/DL (3.2-5.2); ALKALINE PHOSPHATASE 96 U/L (45-117); ALT/SGPT 23 U/L (12-78); ANION GAP 8 MEQ/L (8-16); AST/SGOT 15 U/L (7-37); BILIRUBIN,TOTAL 0.4 MG/DL (0.2-1.0); BLOOD UREA NITROGEN 16 MG/DL (7-18); C REACTIVE PROTEIN QUANTITATIV < 0.30 MG/DL (0.00-0.30); CALCIUM LEVEL 8.7 MG/DL (8.5-10.1); CARBON DIOXIDE LEVEL 28 MEQ/L (21-32); CHLORIDE LEVEL 106 MEQ/L (98-107); CREATININE FOR GFR 0.94 MG/DL (0.55-1.30); GLOMERULAR FILTRATION RATE > 60.0 (>58); GLUCOSE, FASTING 102 MG/DL (70-100); NT-PRO BNP 185 PG/ML (<125); POTASSIUM SERUM 3.8 MEQ/L (3.5-5.1); SODIUM LEVEL 142 MEQ/L (136-145); TOTAL PROTEIN 7.6 GM/DL (6.4-8.2); VITAMIN B12 LEVEL 816 PG/ML (247-911)
[2017-11-03 14:55] LABS: PRETREATED FOLATE FOR RBCFOL 11.5 NG/ML; RBC FOLATE 568.2 NG/ML (280-791)
== END ==
LOC: M SFHCPLAZ 08:41
DX: I50.32 Chronic diastolic (congestive) heart failure (principal); D86.9 Sarcoidosis, unspecified; E53.8 Deficiency of other specified B group vitamins
CPT/HCPCS: 83735

== ENCOUNTER → 2018-05-14 | Outpatient (REF) | payer OTHER ==
[~2018-05-14] MED LIST changes: -DRIS50002 PO; +DRIS50003 PO; -GABA-282 PO; +GABA-843 PO; -GABA600T PO; +GABA600T4 PO; +IPRA0.00 INH; -IPRASOL4 INH; -PANT40TA2 PO; +PANT40TA3 PO; -VITA1CAP40 PO; +VITA50005 PO
[2018-05-14 11:52] LABS: BASO % 0.7 % (0.0-1.0); EOS # 0.2 10^3/uL (0.0-0.50); EOS % 5.2 % (0.0-3.0); HEMOGLOBIN 14.7 g/dl (12.0-15.5); LYMPH # 1.3 10^3/uL (1.5-4.5); LYMPH % 32.3 % (24.0-44.0); MEAN CORPUSCULAR HEMOGLOBIN 33.8 pg (27.0-33.0); MEAN CORPUSCULAR VOLUME 96.6 fl (80.0-96.0); MONO # 0.3 10^3/uL (0.0-0.8); MONO % 6.2 % (0.0-5.0); NEUTROPHILS # 2.2 10^3/uL (1.8-7.7); NEUTROPHILS % 55.4 % (36.0-66.0); PLATELET COUNT, AUTOMATED 219 10^3/uL (150-450); RED BLOOD COUNT 4.35 10^6/uL (4.00-5.40)
[2018-05-14 12:00] LABS: APPEARANCE, URINE CLEAR (CLEAR); BACTERIA, URINE AUTO NEGATIVE (NEGATIVE); BILIRUBIN, URINE AUTO NEGATIVE (NEGATIVE); BLOOD, URINE BLOOD NEGATIVE (NEGATIVE); COLOR, URINE STRAW (YELLOW); GLUCOSE, URINE (UA) AUTO NEGATIVE (NEGATIVE); KETONE, URINE AUTO NEGATIVE (NEGATIVE); LEUKOCYTE ESTERASE, URINE AUTO NEGATIVE (NEGATIVE); MUCUS, URINE SMALL (NEGATIVE); NITRITE, URINE AUTO NEGATIVE (NEGATIVE); PROTEIN, URINE AUTO NEGATIVE (NEGATIVE); RBC, URINE AUTO 1 /HPF (0-3); SPECIFIC GRAVITY URINE AUTO 1.008 (1.002-1.035); SQUAMOUS EPITHELIAL CELL UR AU 4 /HPF (0-6); UROBILINOGEN, URINE AUTO 0.2 mg/dL (0.0-2.0); WBC, URINE AUTO 1 /HPF (0-3)
[2018-05-14 12:21] LABS: HEMOGLOBIN A1c 4.7 %
[2018-05-14 12:50] LABS: CREATININE, URINE 50.4 MG/DL; MALB URINE SIEMENS < 5.0 MG/L; MAU/CREAT RATIO 9.9 MCG/MG (0.0-30.0)
[2018-05-14 12:57] LABS: ALBUMIN 3.9 GM/DL (3.2-5.2); ALT/SGPT 21 U/L (12-78); BILIRUBIN,TOTAL 0.5 MG/DL (0.2-1.0); BLOOD UREA NITROGEN 10 MG/DL (7-18); C REACTIVE PROTEIN QUANTITATIV < 0.30 MG/DL (0.00-0.30); CALCIUM LEVEL 8.9 MG/DL (8.5-10.1); CARBON DIOXIDE LEVEL 30 MEQ/L (21-32); CHLORIDE LEVEL 103 MEQ/L (98-107); CHOLESTEROL LEVEL 193 MG/DL (<200); CHOLESTEROL RISK RATIO 2.075 (<5); CPK CREATINE PHOSPHOKINASE 116 U/L (26-192); CREATININE FOR GFR 0.91 MG/DL (0.55-1.30); FREE T4 1.09 NG/DL (0.76-1.46); GLOMERULAR FILTRATION RATE > 60.0 (>58); GLUCOSE, FASTING 88 MG/DL (70-100); HDL CHOLESTEROL 93 MG/DL (>40); LDL CHOLESTEROL 84 MG/DL (<100); NON-HDL-C 100 MG/DL; NT-PRO BNP 105 PG/ML (<125); POTASSIUM SERUM 3.9 MEQ/L (3.5-5.1); SODIUM LEVEL 142 MEQ/L (136-145); TOTAL PROTEIN 7.5 GM/DL (6.4-8.2); TRIGLYCERIDES LEVEL 80 MG/DL (<150)
== END ==
LOC: M SFHCPLAZ 09:09
PROVIDERS: ATTEND Family Medicine
DX: R73.01 Impaired fasting glucose (principal); E53.8 Deficiency of other specified B group vitamins; I50.32 Chronic diastolic (congestive) heart failure

== ENCOUNTER → 2018-06-18 | Outpatient (CLI) | payer MEDICARE, MEDICAID ==
--- NOTE | 2018-06-18 14:18 | REP ---
MRI LEFT KNEE: TECHNIQUE: Axial proton density fat saturation, sagittal proton density T2 STIR, water excitation, coronal proton density, proton density fat saturation. Menisci appear intact with no evidence of a meniscal tear. The cruciate and collateral ligaments are intact. The extensor mechanism is intact. There is severe cartilaginous thinning of the medial patellar facet with moderate degree of subchondral marrow edema and cystic change. There is mild diffuse chondromalacia in the medial and lateral joint compartments. There is focal severe thinning and severe cartilaginous irregularity at the anterior aspect of the medial femoral condyle with subchondral marrow edema and cystic change. Serpiginous areas of low and high signal in the femoral condyles and posterior lateral tibial plateau are consistent with bone infarct. There is a small joint effusion. No popliteal cyst is seen. IMPRESSION: No evidence of meniscal tear. Cruciate and collateral ligaments are intact. Mild global chondromalacia with severe focal cartilaginous thinning and irregularity of the medial patellar facet and anterior medial femoral condyle with subchondral marrow edema and cystic change. There are bone infarcts in the femoral condyles and also in the lateral tibial plateau. Small joint effusion. Electronically Signed by Jordin Erazo MD 06/18/2018 11:43 P
== END ==
LOC: M RAD 08:40
PROVIDERS: ATTEND Family Medicine
DX: M17.0 Bilateral primary osteoarthritis of knee (principal); M22.42 Chondromalacia patellae, left knee; M25.462 Effusion, left knee

== ENCOUNTER → 2018-09-07 | Outpatient (REF) | payer MEDICARE, MEDICAID ==
[~2018-09-07] MED LIST changes: +HYDR-3715 PO; +LATA0.0013 OD; -LATA5OPD OD; -NORCOTAB PO
[2018-09-07 12:19] LABS: BASO % 0.6 % (0.0-1.0); EOS # 0.2 10^3/uL (0.0-0.50); EOS % 3.5 % (0.0-3.0); HEMATOCRIT 41.4 % (36.0-47.0); HEMOGLOBIN 14.6 g/dl (12.0-15.5); LYMPH # 1.2 10^3/uL (1.5-4.5); MEAN CORPUSCULAR HEMOGLOBIN 33.3 pg (27.0-33.0); MEAN CORPUSCULAR HGB CONC 35.3 g/dl (32.0-36.5); MEAN CORPUSCULAR VOLUME 94.5 fl (80.0-96.0); MONO # 0.2 10^3/uL (0.0-0.8); MONO % 4.8 % (0.0-5.0); NEUTROPHILS # 3.2 10^3/uL (1.8-7.7); NEUTROPHILS % 65.7 % (36.0-66.0); PLATELET COUNT, AUTOMATED 257 10^3/uL (150-450); RED BLOOD COUNT 4.38 10^6/uL (4.00-5.40); WHITE BLOOD COUNT 4.8 10^3/uL (4.0-10.0)
[2018-09-07 12:58] LABS: ALT/SGPT 21 U/L (12-78); BILIRUBIN,TOTAL 0.5 MG/DL (0.2-1.0); BLOOD UREA NITROGEN 12 MG/DL (7-18); CALCIUM LEVEL 9.2 MG/DL (8.5-10.1); CARBON DIOXIDE LEVEL 25 MEQ/L (21-32); CHLORIDE LEVEL 105 MEQ/L (98-107); FREE T4 1.26 NG/DL (0.76-1.46); GLUCOSE, FASTING 82 MG/DL (70-100); POTASSIUM SERUM 4.5 MEQ/L (3.5-5.1); PTH INTACT 73.2 PG/ML (18.5-88.0); SODIUM LEVEL 138 MEQ/L (136-145); THYROGLOBULIN ANTIBODY < 15.0 U/ML (<60.0); THYROID PEROXIDASE ANTIBODY < 28.0 U/ML (<60.0); TOTAL 25(OH) VITAMIN D 83.6 NG/ML (30.0-100.0); TOTAL PROTEIN 7.7 GM/DL (6.4-8.2); VITAMIN B12 LEVEL 1347 PG/ML (247-911)
== END ==
LOC: M SFHCPLAZ 09:59
PROVIDERS: ATTEND Family Medicine
DX: D86.9 Sarcoidosis, unspecified (principal); E55.9 Vitamin D deficiency, unspecified; R73.01 Impaired fasting glucose; M17.0 Bilateral primary osteoarthritis of knee; I50.32 Chronic diastolic (congestive) heart failure
CPT/HCPCS: 36415; 80053; 82306; 82607; 83970; 84439; 84443; 85025; 86376; 86800; G0463

== ENCOUNTER → 2018-09-19 | Outpatient (CLI) | payer MEDICARE, MEDICAID ==
--- NOTE | 2018-09-19 11:29 | REP ---
MR LUMBAR SPINE WITHOUT CONTRAST: HISTORY: Chronic back pain. Decreased signal intensity on T2-weighted images is present in the L3-4 through L5-S1 intervertebral discs. The discs are decreased in height. These findings are consistent with disc degeneration. There is no disc bulge or herniation at the L1-2 and L2-3 levels. The nerves exit the neural foramina without compression. A diffuse disc bulge is present at the L3-4 level. There are 2 mm of grade 1 spondylolisthesis of L3 on 4. There is minimal compression of the thecal sac. There is hypertrophy of the posterior articulating facets. The L3 nerves exit the neural foramina without compression. A diffuse disc bulge is present at the L4-5 level. There is minimal compression of the thecal sac. There is hypertrophy of the posterior articulating facets. The L4 nerves exit the neural foramina without compression. A diffuse disc bulge and small central disc protrusion are present at the L5-S1 level. There is minimal compression of the thecal sac. There is hypertrophy of the posterior articulating facets. The L5 nerves exit the neural foramina without compression. The conus medullaris is normal in appearance terminating at the level of the L1-2 intervertebral disc. Increased signal intensity on T2-weighted images is present in the end plates of the L5 and S1 vertebral bodies. This represents degenerative change. IMPRESSION: 1. Diffuse disc bulge and grade 1 spondylolisthesis at the L3-4 level with minimal thecal sac compression. The spondylolisthesis is a new finding. 2. Diffuse disc bulge at the L4-5 level with minimal thecal sac compression. 3. Diffuse disc bulge and small central disc protrusion at the L5-S1 level with minimal thecal sac compression. There is no other significant change. Electronically Signed by Abdifatah Serrano MD 09/19/2018 11:40 A
== END ==
LOC: M RAD 09:24
PROVIDERS: ATTEND Family Medicine
DX: M51.26 Other intervertebral disc displacement, lumbar region (principal); M51.27 Other intervertebral disc displacement, lumbosacral region; M47.816 Spondylosis without myelopathy or radiculopathy, lumbar region

== ENCOUNTER → 2019-01-08 | Outpatient (REF) | payer MEDICARE, MEDICAID ==
[~2019-01-08] MED LIST changes: +CYAN100049 PO; -VITA10002 PO
[2019-01-08 13:37] LABS: BASO % 0.9 % (0.0-1.0); EOS # 0.2 10^3/uL (0.0-0.5); EOS % 3.5 % (0.0-3.0); HEMATOCRIT 41.7 % (36.0-47.0); HEMOGLOBIN 14.8 g/dl (12.0-15.5); LYMPH # 1.1 10^3/uL (1.5-5.0); LYMPH % 23.9 % (24.0-44.0); MEAN CORPUSCULAR HEMOGLOBIN 34.9 pg (27.0-33.0); MEAN CORPUSCULAR HGB CONC 35.5 g/dl (32.0-36.5); MEAN CORPUSCULAR VOLUME 98.3 fl (80.0-96.0); MONO # 0.3 10^3/uL (0.0-0.8); MONO % 5.8 % (0.0-5.0); NEUTROPHILS % 65.5 % (36.0-66.0); PLATELET COUNT, AUTOMATED 206 10^3/uL (150-450); RED BLOOD COUNT 4.24 10^6/uL (4.00-5.40); WHITE BLOOD COUNT 4.5 10^3/uL (4.0-10.0)
[2019-01-08 13:42] LABS: ALBUMIN 3.8 GM/DL (3.2-5.2); ALT/SGPT 20 U/L (12-78); BILIRUBIN,TOTAL 0.4 MG/DL (0.2-1.0); BLOOD UREA NITROGEN 12 MG/DL (7-18); CALCIUM LEVEL 8.8 MG/DL (8.5-10.1); CARBON DIOXIDE LEVEL 30 MEQ/L (21-32); CHLORIDE LEVEL 106 MEQ/L (98-107); CREATININE FOR GFR 0.97 MG/DL (0.55-1.30); GLOMERULAR FILTRATION RATE > 60.0 (>58); GLUCOSE, FASTING 109 MG/DL (70-100); NT-PRO BNP 343 PG/ML (<125); POTASSIUM SERUM 4.3 MEQ/L (3.5-5.1); SODIUM LEVEL 142 MEQ/L (136-145); TOTAL PROTEIN 7.2 GM/DL (6.4-8.2)
[2019-01-09 15:18] LABS: H PYLORI SERUM QUANT IgG ABY 0.27 (0.00-0.79)
== END ==
LOC: M SFHCPLAZ 10:23
PROVIDERS: ATTEND Family Medicine
DX: D75.89 Other specified diseases of blood and blood-forming organs (principal); R73.01 Impaired fasting glucose; I50.32 Chronic diastolic (congestive) heart failure
CPT/HCPCS: 36415; 80053; 83036; 83525; 83880; 85025; 86677; G0463

== ENCOUNTER → 2019-05-16 | Outpatient (REF) | payer MEDICARE ==
[2019-05-16 14:48] LABS: BASO # 0.1 10^3/uL (0.0-0.2); BASO % 1.5 % (0.0-1.0); EOS # 0.1 10^3/uL (0.0-0.5); EOS % 4.2 % (0.0-3.0); HEMATOCRIT 38.8 % (36.0-47.0); HEMOGLOBIN 13.5 g/dl (12.0-15.5); LYMPH % 29.1 % (24.0-44.0); MEAN CORPUSCULAR HEMOGLOBIN 33.5 pg (27.0-33.0); MEAN CORPUSCULAR HGB CONC 34.8 g/dl (32.0-36.5); MEAN CORPUSCULAR VOLUME 96.3 fl (80.0-96.0); MONO # 0.1 10^3/uL (0.0-0.8); MONO % 4.2 % (0.0-5.0); NEUTROPHILS # 2.1 10^3/uL (1.5-8.5); NEUTROPHILS % 60.7 % (36.0-66.0); PLATELET COUNT, AUTOMATED 211 10^3/uL (150-450); RED BLOOD COUNT 4.03 10^6/uL (4.00-5.40); WHITE BLOOD COUNT 3.4 10^3/uL (4.0-10.0)
[2019-05-16 15:11] LABS: ALBUMIN 4.1 GM/DL (3.2-5.2); ALT/SGPT 19 U/L (12-78); BILIRUBIN,TOTAL 0.4 MG/DL (0.2-1.0); BLOOD UREA NITROGEN 12 MG/DL (7-18); CALCIUM LEVEL 9.1 MG/DL (8.5-10.1); CARBON DIOXIDE LEVEL 31 MEQ/L (21-32); CHLORIDE LEVEL 104 MEQ/L (98-107); CHOLESTEROL LEVEL 177 MG/DL (<200); CHOLESTEROL RISK RATIO 2.391 (<5); CREATININE FOR GFR 0.99 MG/DL (0.55-1.30); GLOMERULAR FILTRATION RATE > 60.0 (>58); GLUCOSE, FASTING 99 MG/DL (70-100); HDL CHOLESTEROL 74 MG/DL (>40); LDL CHOLESTEROL 82 MG/DL (<100); MAGNESIUM LEVEL 2.1 MG/DL (1.8-2.4); NON-HDL-C 103 MG/DL; NT-PRO BNP 128 PG/ML (<125); POTASSIUM SERUM 3.8 MEQ/L (3.5-5.1); SODIUM LEVEL 141 MEQ/L (136-145); TOTAL PROTEIN 7.3 GM/DL (6.4-8.2); TRIGLYCERIDES LEVEL 105 MG/DL (<150)
[2019-05-16 15:21] LABS: VITAMIN B12 LEVEL 1291 PG/ML (247-911)
== END ==
LOC: M LABDRAW1 14:20
PROVIDERS: ATTEND Family Medicine
DX: I50.32 Chronic diastolic (congestive) heart failure (principal); D75.89 Other specified diseases of blood and blood-forming organs

== ENCOUNTER → 2019-08-09 | Outpatient (REF) | payer MEDICARE, MEDICAID ==
[~2019-08-09] MED LIST changes: -MECL-68 PO; +MECL1TAB31 PO
[2019-08-09 13:46] LABS: EOS # 0.1 10^3/uL (0.0-0.5); EOS % 3.6 % (0.0-3.0); HEMATOCRIT 38.8 % (36.0-47.0); HEMOGLOBIN 13.6 g/dl (12.0-15.5); LYMPH # 1.1 10^3/uL (1.5-5.0); LYMPH % 34.4 % (24.0-44.0); MEAN CORPUSCULAR HEMOGLOBIN 32.2 pg (27.0-33.0); MEAN CORPUSCULAR HGB CONC 35.1 g/dl (32.0-36.5); MEAN CORPUSCULAR VOLUME 91.9 fl (80.0-96.0); MONO # 0.2 10^3/uL (0.0-0.8); MONO % 5.2 % (0.0-5.0); NEUTROPHILS # 1.7 10^3/uL (1.5-8.5); NEUTROPHILS % 55.5 % (36.0-66.0); PLATELET COUNT, AUTOMATED 192 10^3/uL (150-450); RED BLOOD COUNT 4.22 10^6/uL (4.00-5.40); WHITE BLOOD COUNT 3.1 10^3/uL (4.0-10.0)
[2019-08-09 13:58] LABS: ALT/SGPT 20 U/L (12-78); BILIRUBIN,TOTAL 0.4 MG/DL (0.2-1.0); BLOOD UREA NITROGEN 16 MG/DL (7-18); C REACTIVE PROTEIN QUANTITATIV < 0.30 MG/DL (0.00-0.30); CALCIUM LEVEL 9.5 MG/DL (8.5-10.1); CARBON DIOXIDE LEVEL 32 MEQ/L (21-32); CHLORIDE LEVEL 105 MEQ/L (98-107); FREE T4 1.14 NG/DL (0.76-1.46); GLOMERULAR FILTRATION RATE 56.2 (>58); GLUCOSE, FASTING 94 MG/DL (70-100); MAGNESIUM LEVEL 2.1 MG/DL (1.8-2.4); POTASSIUM SERUM 4.1 MEQ/L (3.5-5.1); SODIUM LEVEL 138 MEQ/L (136-145); TOTAL PROTEIN 7.5 GM/DL (6.4-8.2)
[2019-08-09 14:05] LABS: ERYTHROCYTE SEDIMENTATION RATE 21 mm/hr (0-20)
[2019-08-09 14:11] LABS: TOTAL 25(OH) VITAMIN D 88.8 NG/ML (30.0-100.0)
== END ==
LOC: M SFHCPLAZ 09:34
PROVIDERS: ATTEND Family Medicine
DX: E55.9 Vitamin D deficiency, unspecified (principal); D86.9 Sarcoidosis, unspecified; K59.09 Other constipation
CPT/HCPCS: 36415; 80053; 82164; 82306; 83735; 83970; 84439; 84443; 85025; 85652; 86140; G0463

== ENCOUNTER → 2020-02-21 | Outpatient (REF) | payer MEDICARE, MEDICAID ==
[~2020-02-21] MED LIST changes: +PANT40TA29 PO; -PANT40TA3 PO
[2020-02-21 14:32] LABS: BASO % 0.5 % (0.0-1.0); EOS % 0.7 % (0.0-3.0); HEMATOCRIT 44.6 % (36.0-47.0); HEMOGLOBIN 15.4 g/dl (12.0-15.5); LYMPH # 0.9 10^3/uL (1.5-5.0); LYMPH % 16.3 % (24.0-44.0); MEAN CORPUSCULAR HEMOGLOBIN 32.4 pg (27.0-33.0); MEAN CORPUSCULAR HGB CONC 34.5 g/dl (32.0-36.5); MEAN CORPUSCULAR VOLUME 93.7 fl (80.0-96.0); MONO # 0.2 10^3/uL (0.0-0.8); MONO % 4.2 % (0.0-5.0); NEUTROPHILS # 4.4 10^3/uL (1.5-8.5); NEUTROPHILS % 77.9 % (36.0-66.0); PLATELET COUNT, AUTOMATED 193 10^3/uL (150-450); RED BLOOD COUNT 4.76 10^6/uL (4.00-5.40); WHITE BLOOD COUNT 5.7 10^3/uL (4.0-10.0)
[2020-02-21 14:34] LABS: HEMATOCRIT 44.6 % (36.0-47.0)
[2020-02-21 15:04] LABS: ALBUMIN 4.3 GM/DL (3.2-5.2); BILIRUBIN,TOTAL 0.5 MG/DL (0.2-1.0); C REACTIVE PROTEIN QUANTITATIV 0.3 MG/DL (0.00-0.30); CALCIUM LEVEL 9.7 MG/DL (8.5-10.1); CREATININE FOR GFR 1.14 MG/DL (0.55-1.30); ERYTHROCYTE SEDIMENTATION RATE 11 mm/hr (0-30); GLOMERULAR FILTRATION RATE 53.7 (>51); TOTAL PROTEIN 8.1 GM/DL (6.4-8.2)
== END ==
LOC: M SFHCPLAZ 10:57
PROVIDERS: ATTEND Family Medicine
DX: E53.8 Deficiency of other specified B group vitamins (principal); D86.9 Sarcoidosis, unspecified; Z23 Encounter for immunization
CPT/HCPCS: 36415; 80053; 82607; 82747; 85025; 85652; 86140; 90682; G0008; G0463

== ENCOUNTER → 2020-06-12 | Outpatient (REF) | payer MEDICARE, MEDICAID ==
[~2020-06-12] MED LIST changes: +GABA-282 PO; -GABA-843 PO
[2020-06-12 15:30] LABS: BASO % 0.7 % (0.0-1.0); EOS # 0.1 10^3/uL (0.0-0.5); EOS % 1.8 % (0.0-3.0); HEMATOCRIT 40.1 % (36.0-47.0); HEMOGLOBIN 13.8 g/dl (12.0-15.5); LYMPH % 23.2 % (24.0-44.0); MEAN CORPUSCULAR HEMOGLOBIN 32.6 pg (27.0-33.0); MEAN CORPUSCULAR HGB CONC 34.4 g/dl (32.0-36.5); MEAN CORPUSCULAR VOLUME 94.8 fl (80.0-96.0); MONO # 0.3 10^3/uL (0.0-0.8); MONO % 6.4 % (0.0-5.0); NEUTROPHILS % 67.7 % (36.0-66.0); PLATELET COUNT, AUTOMATED 212 10^3/uL (150-450); RED BLOOD COUNT 4.23 10^6/uL (4.00-5.40); WHITE BLOOD COUNT 4.4 10^3/uL (4.0-10.0)
[2020-06-12 16:04] LABS: ALBUMIN 4.2 GM/DL (3.2-5.2); BILIRUBIN,TOTAL 0.3 MG/DL (0.2-1.0); CALCIUM LEVEL 9.6 MG/DL (8.5-10.1); CREATININE FOR GFR 1.21 MG/DL (0.55-1.30); GLOMERULAR FILTRATION RATE 50.1 (>51); MAGNESIUM LEVEL 1.9 MG/DL (1.8-2.4); TOTAL PROTEIN 7.5 GM/DL (6.4-8.2)
== END ==
LOC: M SFHCPLAZ 12:52
PROVIDERS: ATTEND Family Medicine
DX: R73.01 Impaired fasting glucose (principal); I50.32 Chronic diastolic (congestive) heart failure; D72.819 Decreased white blood cell count, unspecified
CPT/HCPCS: 36415; 80053; 82728; 83036; 83525; 83735; 83880; 85025; 85046; G0463

== ENCOUNTER → 2020-07-02 | Outpatient (CLI) | payer MEDICARE, MEDICAID ==
--- NOTE | 2020-07-02 13:23 | REP ---
INDICATION: CHRONIC NAUSEA. COMPARISON: None. TECHNIQUE/RADIOTRACER AND DOSE: 1.04 mCi of Technetium-99m sulfur colloid was ingested in two scrambled eggs and 6 ounces of water and sequential anterior and posterior images are acquired for an 89-minute imaging observation period. Regions of interest are drawn around the stomach to plot gastric emptying. FINDINGS: Expected T1/2 is 90 minutes. Forty-one% emptying is observed in this patient during the 89-minute imaging observation period, for a calculated T1/2 in this patient of 68 minutes. IMPRESSION: Normal gastric emptying. <Electronically signed by Jj Magaña > 07/02/20 [id number]
== END ==
LOC: M RAD 07:35
PROVIDERS: ATTEND Family Medicine
DX: R11.0 Nausea (principal)
CPT/HCPCS: 78264; A9541

== ENCOUNTER → 2020-10-29 | Outpatient (CLI) | payer MEDICARE, MEDICAID ==
--- NOTE | 2020-10-29 11:45 | DEXAMM ---
INDICATION: M85.80 OSTEOPENIA. COMPARISON: 05/15/2017. TECHNIQUE: Bone density was measured using dual-energy x-ray absorptiometry (DEXA). FINDINGS: AP SPINE L1-L4 BMD 1.083 g/cm2 Young Adult T-Score -0.9 Age Matched Z-Score -0.4. LT FEMUR, TOTAL BMD 1.041 g/cm2 Young Adult T-Score 0.3 Age Matched Z-Score 0.8. LT NECK BMD 1.091 g/cm2 Young Adult T-Score 0.4 Age Matched Z-Score 1.2. RT FEMUR, TOTAL BMD 1.067 g/cm2 Young Adult T-Score 0.5 Age Matched Z-Score 1.0. RT NECK BMD 1.089 g/cm2 Young Adult T-Score 0.4 Age Matched Z-Score 1.2. IMPRESSION: There is normal bone density of the spine. There is normal bone density of the left hip. There is normal bone density of the right hip. The density of the spine has decreased 0.1% since the initial exam on 05/15/2017. The density of the left hip has decreased 3.6% since initial exam on 05/15/2017. The density of the right hip has increased 3.5% since the initial exam on 05/15/2017. FOLLOW-UP: Recommendation for the next bone density exam: 5 years. <Electronically signed by Jordin Erazo > 10/29/20 [id number]
== END ==
LOC: M WHC 10:10
PROVIDERS: ATTEND Family Medicine
DX: M85.89 Other specified disorders of bone density and structure, multiple sites (principal)

== ENCOUNTER → 2020-11-03 | Outpatient (CLI) | payer MEDICARE, MEDICAID ==
--- NOTE | 2020-11-04 14:03 | REPVR ---
PROCEDURE INFORMATION: Exam: MR Lumbar Spine Without Contrast Exam date and time: 11/03/2020 9:22 AM Age: 50 years old Clinical indication: Low back pain; Additional info: Lumbar ddd TECHNIQUE: Imaging protocol: Multiplanar magnetic resonance images of the lumbar spine without intravenous contrast. COMPARISON: MRI-Spine, L.S. without con 09/19/2018 10:18 AM FINDINGS: Vertebrae: Vertebral heights are maintained minimal anterolisthesis of L3 on L4 and L5 on S1. Endplate degenerative edema at L3/L4 and L5/at S1. No acute fracture. Spinal cord: Normal signal. No cord compression. L1-L2: No significant disc disease. No significant spinal canal stenosis. No neural foraminal stenosis. L2-L3: No significant disc disease. No significant spinal canal stenosis. No neural foraminal stenosis. L3-L4: Minimal 1 mm anterolisthesis of L3 on L5, mild diffuse disc bulge with annular fissure and bilateral facet joint arthropathy without any significant central spinal canal stenosis. Mild right neural foraminal narrowing and moderate left neural foraminal narrowing. Mild abutment of exiting left L3 nerve roots in the neural foramina. L4-L5: Mild diffuse disc bulge with bilateral facet joint arthropathy and ligamentum flavum hypertrophy without any significant central spinal canal stenosis or neural foraminal narrowing. L5-S1: 2 mm anterolisthesis of L5 on S1 with uncovering of posterior disc, 50% loss of disc space, mild diffuse disc bulge with central tiny disc protrusion with annular fissure and bilateral facet joint arthropathy and ligamentum flavum hypertrophy resulting in mild indentation on thecal sac the and mild left neural foraminal narrowing with abutment of exiting left L5 nerve root. Right neural foramina is patent. Soft tissues: Unremarkable. IMPRESSION: No acute findings. Mild degenerative changes as described in detail above. Please see above dictation for individual levels. Electronically signed by: Valeri Sun On 11/04/2020 14:03:25 PM
== END ==
LOC: M PLAIMG 08:34
PROVIDERS: ATTEND Family Medicine
DX: M47.816 Spondylosis without myelopathy or radiculopathy, lumbar region (principal)

== ENCOUNTER → 2020-11-05 | Outpatient (CLI) | payer MEDICARE, MEDICAID ==
--- NOTE | 2020-11-05 09:00 | REP ---
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 FINDINGS: Mild chronic dextroconvex scoliosis noted. Endplate sclerosis, disc space narrowing, early osteophytosis and facet hypertrophy primarily involving L5-S1 as well as L3-4 and L4-5. No acute fracture/compression injury. IMPRESSION: Multilevel degenerative changes. <Electronically signed by Je Li > 11/05/20 [id number]
== END ==
LOC: M PLAIMG 08:06
PROVIDERS: ATTEND Family Medicine
DX: M47.816 Spondylosis without myelopathy or radiculopathy, lumbar region (principal)

== ENCOUNTER → 2020-12-04 | Outpatient (CLI) | payer MEDICARE, MEDICAID ==
[2020-12-04 11:39] LABS: HEMATOCRIT 39.8 % (36.0-47.0)
[2020-12-04 11:41] LABS: BASO % 0.8 % (0.0-1.0); EOS # 0.1 10^3/uL (0.0-0.5); EOS % 3.2 % (0.0-3.0); HEMATOCRIT 40.2 % (36.0-47.0); HEMOGLOBIN 13.7 g/dl (12.0-15.5); LYMPH % 25.9 % (24.0-44.0); MEAN CORPUSCULAR HEMOGLOBIN 33.3 pg (27.0-33.0); MEAN CORPUSCULAR HGB CONC 34.1 g/dl (32.0-36.5); MEAN CORPUSCULAR VOLUME 97.6 fl (80.0-96.0); MONO # 0.2 10^3/uL (0.0-0.8); MONO % 5.9 % (2.0-8.0); NEUTROPHILS # 2.4 10^3/uL (1.5-8.5); NEUTROPHILS % 63.9 % (36.0-66.0); PLATELET COUNT, AUTOMATED 178 10^3/uL (150-450); RED BLOOD COUNT 4.12 10^6/uL (4.00-5.40); WHITE BLOOD COUNT 3.7 10^3/uL (4.0-10.0)
[2020-12-04 12:08] LABS: ALBUMIN 3.6 GM/DL (3.2-5.2); ALT/SGPT 21 U/L (12-78); BILIRUBIN,TOTAL 0.3 MG/DL (0.2-1.0); BLOOD UREA NITROGEN 12 MG/DL (7-18); CALCIUM LEVEL 9.4 MG/DL (8.5-10.1); CARBON DIOXIDE LEVEL 32 MEQ/L (21-32); CHLORIDE LEVEL 104 MEQ/L (98-107); CREATININE FOR GFR 1.08 MG/DL (0.55-1.30); GLOMERULAR FILTRATION RATE 56.9 (>51); GLUCOSE, FASTING 81 MG/DL (70-100); NT-PRO BNP 122 PG/ML (<125); POTASSIUM SERUM 4.4 MEQ/L (3.5-5.1); SODIUM LEVEL 141 MEQ/L (136-145); TOTAL PROTEIN 6.7 GM/DL (6.4-8.2)
[2020-12-04 12:11] LABS: VITAMIN B12 LEVEL 509 PG/ML (247-911)
== END ==
LOC: M PLALAB 07:51
PROVIDERS: ATTEND Family Medicine
DX: D75.89 Other specified diseases of blood and blood-forming organs (principal); I50.32 Chronic diastolic (congestive) heart failure; R73.01 Impaired fasting glucose

== ENCOUNTER → 2021-07-27 | Outpatient (CLI) | payer MEDICARE, MEDICAID ==
[~2021-07-27] MED LIST changes: -CYMB60CA3 PO; +CYMB60CA4 PO
[2021-07-27 13:23] LABS: BASO % 0.8 % (0.0-1.0); EOS # 0.1 10^3/uL (0.0-0.5); EOS % 1.7 % (0.0-3.0); HEMATOCRIT 41.7 % (36.0-47.0); HEMOGLOBIN 14.3 g/dl (12.0-15.5); LYMPH # 0.9 10^3/uL (1.5-5.0); LYMPH % 24.6 % (24.0-44.0); MEAN CORPUSCULAR HEMOGLOBIN 32.8 pg (27.0-33.0); MEAN CORPUSCULAR HGB CONC 34.3 g/dl (32.0-36.5); MEAN CORPUSCULAR VOLUME 95.6 fl (80.0-96.0); MONO # 0.2 10^3/uL (0.0-0.8); MONO % 6.1 % (2.0-8.0); NEUTROPHILS # 2.4 10^3/uL (1.5-8.5); NEUTROPHILS % 66.2 % (36.0-66.0); PLATELET COUNT, AUTOMATED 166 10^3/uL (150-450); RED BLOOD COUNT 4.36 10^6/uL (4.00-5.40); WHITE BLOOD COUNT 3.6 10^3/uL (4.0-10.0)
[2021-07-27 13:50] LABS: ERYTHROCYTE SEDIMENTATION RATE 12 mm/hr (0-30)
[2021-07-27 14:03] LABS: ALBUMIN 3.9 GM/DL (3.2-5.2); BILIRUBIN,TOTAL 0.4 MG/DL (0.2-1.0); C REACTIVE PROTEIN QUANTITATIV 0.3 MG/DL (0.00-0.30); CALCIUM LEVEL 9.6 MG/DL (8.5-10.1); CREATININE FOR GFR 1.28 MG/DL (0.55-1.30); GLOMERULAR FILTRATION RATE 46.8 (>51); MAGNESIUM LEVEL 2.3 MG/DL (1.8-2.4); POTASSIUM SERUM 4.7 MEQ/L (3.5-5.1); TOTAL PROTEIN 7.1 GM/DL (6.4-8.2)
[2021-07-27 14:05] LABS: TOTAL 25(OH) VITAMIN D 86.1 NG/ML (30.0-100.0)
== END ==
LOC: M PLALAB 11:06
PROVIDERS: ATTEND Family Medicine
DX: D75.89 Other specified diseases of blood and blood-forming organs (principal); E55.9 Vitamin D deficiency, unspecified; I50.32 Chronic diastolic (congestive) heart failure; Z79.899 Other long term (current) drug therapy

== ENCOUNTER → 2021-07-27 | Outpatient (CLI) | payer MEDICARE, MEDICAID | LOC: M WHC 10:28 | PROVIDERS: ATTEND Family Medicine | DX: Z12.31 Encounter for screening mammogram for malignant neoplasm of breast (principal); Z78.0 Asymptomatic menopausal state ==

== ENCOUNTER → 2021-10-01 | Outpatient (CLI) | payer MEDICAID, MEDICARE ==
[~2021-10-01] MED LIST changes: +GASTROGRAFIN SOLUTION 30ML (Q9963) As Ordered ONE; +ISOVUE-370 76% 100ML VIAL As Ordered ONE
[2021-10-01 11:50] LABS: BASO % 0.9 % (0.0-1.0); EOS % 0.9 % (0.0-3.0); HEMOGLOBIN 14.7 g/dl (12.0-15.5); LYMPH % 23.4 % (24.0-44.0); MEAN CORPUSCULAR HEMOGLOBIN 32.7 pg (27.0-33.0); MEAN CORPUSCULAR HGB CONC 34.2 g/dl (32.0-36.5); MEAN CORPUSCULAR VOLUME 95.6 fl (80.0-96.0); MONO # 0.3 10^3/uL (0.0-0.8); MONO % 6.7 % (2.0-8.0); NEUTROPHILS % 67.9 % (36.0-66.0); PLATELET COUNT, AUTOMATED 177 10^3/uL (150-450); WHITE BLOOD COUNT 4.4 10^3/uL (4.0-10.0)
[2021-10-01 12:12] LABS: AMORPHOUS SEDIMENT SMALL (NEGATIVE); APPEARANCE, URINE HAZY (CLEAR); BACTERIA, URINE AUTO NEGATIVE (NEGATIVE); BILIRUBIN, URINE AUTO NEGATIVE (NEGATIVE); BLOOD, URINE BLOOD NEGATIVE (NEGATIVE); COLOR, URINE AMBER (YELLOW); GLUCOSE, URINE (UA) AUTO NEGATIVE (NEGATIVE); KETONE, URINE AUTO NEGATIVE (NEGATIVE); LEUKOCYTE ESTERASE, URINE AUTO NEGATIVE (NEGATIVE); MUCUS, URINE LARGE (NEGATIVE); NITRITE, URINE AUTO NEGATIVE (NEGATIVE); PROTEIN, URINE AUTO 2+ mg/dL (NEGATIVE); RBC, URINE AUTO 1 /HPF (0-3); SPECIFIC GRAVITY URINE AUTO 1.025 (1.002-1.035); SQUAMOUS EPITHELIAL CELL UR AU 8 /HPF (0-6); UROBILINOGEN, URINE AUTO 0.2 mg/dL (0.0-2.0); WBC, URINE AUTO 4 /HPF (0-3)
[2021-10-01 12:17] LABS: BILIRUBIN,TOTAL 0.4 MG/DL (0.2-1.0); CALCIUM LEVEL 9.3 MG/DL (8.5-10.1); CREATININE FOR GFR 1.35 MG/DL (0.55-1.30); POTASSIUM SERUM 3.9 MEQ/L (3.5-5.1); TOTAL PROTEIN 7.6 GM/DL (6.4-8.2)
== END ==
LOC: M RAD 10:48
PROVIDERS: ATTEND Physician Assistant
DX: R10.31 Right lower quadrant pain (principal); Z90.49 Acquired absence of other specified parts of digestive tract

== ENCOUNTER → 2021-12-08 | Outpatient (CLI) | payer MEDICARE, MEDICAID ==
[~2021-12-08] MED LIST changes: -GASTROGRAFIN SOLUTION 30ML (Q9963) As Ordered ONE; -ISOVUE-370 76% 100ML VIAL As Ordered ONE
[2021-12-08 14:14] LABS: BASO % 1.1 % (0.0-1.0); EOS % 1.1 % (0.0-3.0); HEMATOCRIT 40.1 % (36.0-47.0); LYMPH % 27.6 % (24.0-44.0); MEAN CORPUSCULAR HEMOGLOBIN 34.4 pg (27.0-33.0); MEAN CORPUSCULAR HGB CONC 34.9 g/dl (32.0-36.5); MEAN CORPUSCULAR VOLUME 98.5 fl (80.0-96.0); MONO # 0.2 10^3/uL (0.0-0.8); MONO % 5.7 % (2.0-8.0); NEUTROPHILS # 2.3 10^3/uL (1.5-8.5); NEUTROPHILS % 64.2 % (36.0-66.0); PLATELET COUNT, AUTOMATED 160 10^3/uL (150-450); RED BLOOD COUNT 4.07 10^6/uL (4.00-5.40); WHITE BLOOD COUNT 3.5 10^3/uL (4.0-10.0)
[2021-12-08 14:42] LABS: ERYTHROCYTE SEDIMENTATION RATE 14 mm/hr (0-30)
[2021-12-08 15:09] LABS: ALBUMIN 3.6 GM/DL (3.2-5.2); ALT/SGPT 22 U/L (12-78); BILIRUBIN,TOTAL 0.3 MG/DL (0.2-1.0); BLOOD UREA NITROGEN 15 MG/DL (7-18); CALCIUM LEVEL 9.1 MG/DL (8.5-10.1); CARBON DIOXIDE LEVEL 29 MEQ/L (21-32); CHLORIDE LEVEL 107 MEQ/L (98-107); FERRITIN 69 NG/ML (8-252); FREE T4 1.05 NG/DL (0.76-1.46); GLOMERULAR FILTRATION RATE 45.8 (>51); GLUCOSE, FASTING 92 MG/DL (70-100); NT-PRO BNP 250 PG/ML (<125); POTASSIUM SERUM 4.2 MEQ/L (3.5-5.1); SODIUM LEVEL 142 MEQ/L (136-145)
[2021-12-08 16:09] LABS: THYROID PEROXIDASE ANTIBODY < 28.0 U/ML (<60.0); VITAMIN B12 LEVEL 632 PG/ML (247-911)
[2021-12-08 22:30] LABS: HEMOGLOBIN A1c 4.9 %
== END ==
LOC: M PLALAB 11:31
PROVIDERS: ATTEND Family Medicine
DX: M47.816 Spondylosis without myelopathy or radiculopathy, lumbar region (principal); D72.829 Elevated white blood cell count, unspecified; D86.9 Sarcoidosis, unspecified; R73.01 Impaired fasting glucose; I50.32 Chronic diastolic (congestive) heart failure

== ENCOUNTER → 2022-01-06 | Outpatient (CLI) | payer MEDICARE, MEDICAID | LOC: M CARPUL 09:23 | PROVIDERS: ATTEND Family Medicine | DX: I50.32 Chronic diastolic (congestive) heart failure (principal); R53.82 Chronic fatigue, unspecified ==

== ENCOUNTER → 2022-05-16 | Outpatient (CLI) | payer MEDICARE, MEDICAID ==
[2022-05-16 14:35] LABS: BASO % 0.9 % (0.0-1.0); EOS % 0.5 % (0.0-3.0); HEMATOCRIT 44.5 % (36.0-47.0); HEMOGLOBIN 15.1 g/dl (12.0-15.5); LYMPH # 1.3 10^3/uL (1.5-5.0); LYMPH % 28.9 % (24.0-44.0); MEAN CORPUSCULAR HEMOGLOBIN 33.1 pg (27.0-33.0); MEAN CORPUSCULAR HGB CONC 33.9 g/dl (32.0-36.5); MEAN CORPUSCULAR VOLUME 97.6 fl (80.0-96.0); MONO # 0.3 10^3/uL (0.0-0.8); MONO % 6.8 % (2.0-8.0); NEUTROPHILS # 2.7 10^3/uL (1.5-8.5); PLATELET COUNT, AUTOMATED 222 10^3/uL (150-450); RED BLOOD COUNT 4.56 10^6/uL (4.00-5.40); WHITE BLOOD COUNT 4.4 10^3/uL (4.0-10.0)
[2022-05-16 15:43] LABS: ALBUMIN 4.4 G/DL (3.2-5.2); BILIRUBIN,TOTAL 0.5 MG/DL (0.3-1.2); CALCIUM LEVEL 10.4 MG/DL (8.5-10.1); CREATININE FOR GFR 1.33 MG/DL (0.55-1.30); GLOMERULAR FILTRATION RATE 44.6 (>51); POTASSIUM SERUM 4.2 MMOL/L (3.5-5.1); TOTAL PROTEIN 7.9 G/DL (5.7-8.2)
[2022-05-16 15:47] LABS: FERRITIN 75.2 NG/ML (7.3-270.7); TOTAL 25(OH) VITAMIN D 72.6 NG/ML (20.0-100.0)
[2022-05-18 09:10] LABS: PTH INTACT 27.1 PG/ML (18.5-88.0)
== END ==
LOC: M PLAIMG 09:40
PROVIDERS: ATTEND Family Medicine
DX: J84.9 Interstitial pulmonary disease, unspecified (principal); E55.9 Vitamin D deficiency, unspecified; I50.32 Chronic diastolic (congestive) heart failure; R53.82 Chronic fatigue, unspecified

== ENCOUNTER → 2022-06-08 | Outpatient (CLI) | payer MEDICARE, MEDICAID | LOC: M CARPUL 07:45 | PROVIDERS: ATTEND Family Medicine | DX: D86.9 Sarcoidosis, unspecified (principal) ==

== ENCOUNTER 2022-07-04 08:58 | Outpatient (RCR) | payer MEDICARE, MEDICAID | END 2022-07-05 | LOC: M PT 08:58 | PROVIDERS: ATTEND Family Medicine | DX: R53.81 Other malaise (principal) ==

== ENCOUNTER → 2022-07-11 | Outpatient (CLI) | payer MEDICARE, MEDICAID | LOC: M WHC 11:16 | PROVIDERS: ATTEND Family Medicine | DX: Z12.31 Encounter for screening mammogram for malignant neoplasm of breast (principal) ==

== ENCOUNTER 2022-07-14 08:57 | Outpatient (RCR) | payer MEDICARE, MEDICAID ==
[2022-07-18] MEDS ORDERED: NALT50TA4 PO (13:24)
[2022-07-18] MEDS ORDERED: BUPR-71 PO (13:24)
[2022-07-18] MEDS ORDERED: LINZ290C PO (13:24)
[2022-07-18] MEDS ORDERED: GABA800T4 PO (13:24)
[2022-07-18] MEDS ORDERED: CALC-356 PO (13:24)
[2022-07-18] MEDS ORDERED: CELE1CAP9 PO (13:24)
== END 2022-08-05 ==
LOC: M PT 08:57
PROVIDERS: ATTEND Family Medicine
DX: R53.81 Other malaise (principal)

== ENCOUNTER → 2022-07-27 | Outpatient (CLI) | payer MEDICARE, MEDICAID ==
[~2022-07-27] MED LIST changes: +BUPR-71 PO; +CALC-356 PO; +CELE1CAP9 PO; +GABA800T4 PO; +LINZ290C PO; +NALT50TA4 PO
== END ==
LOC: M LABSMTC 10:28
PROVIDERS: ATTEND Anesthesiology
DX: Z01.818 Encounter for other preprocedural examination (principal); Z11.52 Encounter for screening for COVID-19

== ENCOUNTER 2022-08-01 07:33 | Day surgery (SDC) | payer MEDICARE, MEDICAID ==
[~2022-08-01] VITALS: Ht 165.1 cm; Wt 60.8 kg
[~2022-08-01 07:33] MED LIST changes: +LIDOCAINE 2% 100MG/5ML SDV (FOR ANES.) As Ordered ONE; +NS 1,000 ML IV ONE; +propofoL 200 MG/20 ML VIAL As Ordered ONE
[2022-08-01 09:26] VITALS: BP 109/69
== END 2022-08-01 09:45 | disposition home or self-care (01) ==
LOC: M OPP 07:33
PROVIDERS: ATTEND Internal Medicine Gastroenterology
DX: Z12.11 Encounter for screening for malignant neoplasm of colon (principal); Z80.0 Family history of malignant neoplasm of digestive organs; K63.5 Polyp of colon; K64.8 Other hemorrhoids; G47.33 Obstructive sleep apnea (adult) (pediatric); Z99.89 Dependence on other enabling machines and devices; J45.909 Unspecified asthma, uncomplicated; G43.909 Migraine, unspecified, not intractable, without status migrainosus; K58.1 Irritable bowel syndrome with constipation; Z87.891 Personal history of nicotine dependence; Z79.51 Long term (current) use of inhaled steroids; Z79.52 Long term (current) use of systemic steroids; Z79.891 Long term (current) use of opiate analgesic; Z79.899 Other long term (current) drug therapy; Z88.1 Allergy status to other antibiotic agents; Z88.8 Allergy status to other drugs, medicaments and biological substances; Z91.040 Latex allergy status

== ENCOUNTER → 2022-11-03 | Outpatient (CLI) | payer MEDICARE, MEDICAID ==
[~2022-11-03] MED LIST changes: -HYDR200T3 PO; +HYDR200T46 PO; -LIDOCAINE 2% 100MG/5ML SDV (FOR ANES.) As Ordered ONE; -NS 1,000 ML IV ONE; -propofoL 200 MG/20 ML VIAL As Ordered ONE
== END ==
LOC: M PLAIMG 14:45
PROVIDERS: ATTEND Physician Assistant
DX: K59.09 Other constipation (principal)

== ENCOUNTER → 2022-11-03 | Outpatient (CLI) | payer MEDICARE, MEDICAID ==
[2022-11-03 15:19] LABS: BASO % 0.8 % (0.0-1.0); EOS # 0.1 10^3/uL (0.0-0.5); EOS % 3.1 % (0.0-3.0); HEMATOCRIT 39.1 % (36.0-47.0); HEMOGLOBIN 13.6 g/dl (12.0-15.5); LYMPH % 24.9 % (24.0-44.0); MEAN CORPUSCULAR HEMOGLOBIN 33.9 pg (27.0-33.0); MEAN CORPUSCULAR HGB CONC 34.8 g/dl (32.0-36.5); MEAN CORPUSCULAR VOLUME 97.5 fl (80.0-96.0); MONO # 0.2 10^3/uL (0.0-0.8); MONO % 6.2 % (2.0-8.0); NEUTROPHILS # 2.5 10^3/uL (1.5-8.5); NEUTROPHILS % 64.7 % (36.0-66.0); PLATELET COUNT, AUTOMATED 163 10^3/uL (150-450); RED BLOOD COUNT 4.01 10^6/uL (4.00-5.40); WHITE BLOOD COUNT 3.9 10^3/uL (4.0-10.0)
[2022-11-03 15:56] LABS: TOTAL 25(OH) VITAMIN D 98.8 NG/ML (20.0-100.0)
[2022-11-03 16:01] LABS: ERYTHROCYTE SEDIMENTATION RATE 5 mm/hr (0-30)
[2022-11-03 17:31] LABS: ALBUMIN 3.9 G/DL (3.2-5.2); ALKALINE PHOSPHATASE 57 U/L (46-116); ALT/SGPT < 9 U/L (7.0-40); AST/SGOT 21 U/L (<34); BILIRUBIN,TOTAL 0.5 MG/DL (0.3-1.2); BLOOD UREA NITROGEN 11 MG/DL (9-23); CARBON DIOXIDE LEVEL 30 MMOL/L (20-31); CHLORIDE LEVEL 106 MMOL/L (98-107); CREATININE FOR GFR 1.08 MG/DL (0.55-1.30); GLOMERULAR FILTRATION RATE 56.5 (>51); GLUCOSE, FASTING 82 MG/DL (60-100); POTASSIUM SERUM 4.2 MMOL/L (3.5-5.1); SODIUM LEVEL 141 MMOL/L (136-145); TOTAL PROTEIN 6.4 G/DL (5.7-8.2)
[2022-11-03 17:42] LABS: PTH INTACT 47.1 PG/ML (18.5-88.0)
[2022-11-03 17:45] LABS: C REACTIVE PROTEIN QUANTITATIV < 0.40 MG/DL (<1.0)
== END ==
LOC: M PLALAB 11:21
PROVIDERS: ATTEND Family Medicine
DX: E55.9 Vitamin D deficiency, unspecified (principal); D86.9 Sarcoidosis, unspecified; I50.32 Chronic diastolic (congestive) heart failure

== ENCOUNTER → 2023-01-26 | Outpatient (CLI) | payer MEDICARE, MEDICAID ==
[~2023-01-26] MED LIST changes: +ALBU6.7H6 INH; +CELE0.09 PO; -CELE1CAP9 PO; +ERGO500029 PO; +MECL-209 PO; -MECL1TAB31 PO; +METO5TAB2 PO; +ONDA4TAB6 PO; +SUMA25TA3
[2023-01-26 14:31] LABS: BASO % 0.8 % (0.0-1.0); EOS # 0.1 10^3/uL (0.0-0.5); EOS % 2.2 % (0.0-3.0); HEMATOCRIT 41.9 % (36.0-47.0); HEMOGLOBIN 14.4 g/dl (12.0-15.5); LYMPH # 0.9 10^3/uL (1.5-5.0); LYMPH % 24.7 % (24.0-44.0); MEAN CORPUSCULAR HEMOGLOBIN 34.2 pg (27.0-33.0); MEAN CORPUSCULAR HGB CONC 34.4 g/dl (32.0-36.5); MEAN CORPUSCULAR VOLUME 99.5 fl (80.0-96.0); MONO # 0.2 10^3/uL (0.0-0.8); MONO % 5.4 % (2.0-8.0); NEUTROPHILS # 2.5 10^3/uL (1.5-8.5); NEUTROPHILS % 66.6 % (36.0-66.0); PLATELET COUNT, AUTOMATED 180 10^3/uL (150-450); RED BLOOD COUNT 4.21 10^6/uL (4.00-5.40); WHITE BLOOD COUNT 3.7 10^3/uL (4.0-10.0)
[2023-01-26 15:03] LABS: BILIRUBIN,TOTAL 0.5 MG/DL (0.3-1.2); CALCIUM LEVEL 9.3 MG/DL (8.5-10.1); CREATININE FOR GFR 1.18 MG/DL (0.55-1.30); POTASSIUM SERUM 4.3 MMOL/L (3.5-5.1)
== END ==
LOC: M PLALAB 10:38
PROVIDERS: ATTEND Family Medicine
DX: I50.32 Chronic diastolic (congestive) heart failure (principal)

== ENCOUNTER → 2023-05-29 | Outpatient (CLI) | payer MEDICARE, MEDICAID ==
[~2023-05-29] MED LIST changes: +ISOVUE-370 76% 100ML VIAL As Ordered ONE
== END ==
LOC: M RAD 07:53
PROVIDERS: ATTEND Family Medicine
DX: D86.9 Sarcoidosis, unspecified (principal); R91.8 Other nonspecific abnormal finding of lung field
CPT/HCPCS: 71260; Q9967

== ENCOUNTER → 2023-06-13 | Outpatient (REF) | payer MEDICARE, MEDICAID ==
[~2023-06-13] MED LIST changes: -ISOVUE-370 76% 100ML VIAL As Ordered ONE
== END ==
LOC: M SFHCPLAZ 10:05
PROVIDERS: ATTEND Family Medicine
DX: E55.9 Vitamin D deficiency, unspecified (principal); D72.819 Decreased white blood cell count, unspecified; E53.8 Deficiency of other specified B group vitamins; E24.2 Drug-induced Cushing's syndrome

== ENCOUNTER → 2023-06-13 | Outpatient (CLI) | payer MEDICARE, MEDICAID ==
[2023-06-13 15:27] LABS: BASO % 0.7 % (0.0-1.0); EOS # 0.1 10^3/uL (0.0-0.5); HEMATOCRIT 45.4 % (36.0-47.0); HEMOGLOBIN 15.6 g/dl (12.0-15.5); LYMPH # 1.1 10^3/uL (1.5-5.0); LYMPH % 24.5 % (24.0-44.0); MEAN CORPUSCULAR HEMOGLOBIN 33.8 pg (27.0-33.0); MEAN CORPUSCULAR HGB CONC 34.4 g/dl (32.0-36.5); MEAN CORPUSCULAR VOLUME 98.5 fl (80.0-96.0); MONO # 0.3 10^3/uL (0.0-0.8); MONO % 5.9 % (2.0-8.0); NEUTROPHILS % 65.9 % (36.0-66.0); PLATELET COUNT, AUTOMATED 209 10^3/uL (150-450); RED BLOOD COUNT 4.61 10^6/uL (4.00-5.40); WHITE BLOOD COUNT 4.6 10^3/uL (4.0-10.0)
[2023-06-13 15:57] LABS: FERRITIN 63.7 NG/ML (7.3-270.7)
[2023-06-13 15:58] LABS: TOTAL 25(OH) VITAMIN D 96.5 NG/ML (20.0-100.0)
[2023-06-13 16:02] LABS: BILIRUBIN,TOTAL 0.6 MG/DL (0.3-1.2); CALCIUM LEVEL 9.7 MG/DL (8.5-10.1); CREATININE FOR GFR 1.24 MG/DL (0.55-1.30); GLOMERULAR FILTRATION RATE 48.2 (>51); POTASSIUM SERUM 4.5 MMOL/L (3.5-5.1); TOTAL PROTEIN 7.1 G/DL (5.7-8.2)
[2023-06-13 21:15] LABS: PTH INTACT 50.3 PG/ML (18.5-88.0)
== END ==
LOC: M PLALAB 10:41
PROVIDERS: ATTEND Family Medicine
DX: E55.9 Vitamin D deficiency, unspecified (principal); D72.819 Decreased white blood cell count, unspecified; E53.8 Deficiency of other specified B group vitamins; E24.2 Drug-induced Cushing's syndrome; Z86.39 Personal history of other endocrine, nutritional and metabolic disease

== ENCOUNTER → 2023-07-14 | Outpatient (CLI) | payer MEDICARE, MEDICAID | LOC: M WHC 08:49 | PROVIDERS: ATTEND Family Medicine | DX: Z12.39 Encounter for other screening for malignant neoplasm of breast (principal) ==

== ENCOUNTER → 2023-10-16 | Outpatient (CLI) | payer MEDICARE, MEDICAID ==
[~2023-10-16] MED LIST changes: +ONDA-282 PO; -ONDA4TAB6 PO
[2023-10-16 13:25] LABS: BASO % 0.7 % (0.0-1.0); EOS % 0.7 % (0.0-3.0); HEMATOCRIT 41.4 % (36.0-47.0); HEMOGLOBIN 14.4 g/dl (12.0-15.5); MEAN CORPUSCULAR HEMOGLOBIN 34.1 pg (27.0-33.0); MEAN CORPUSCULAR HGB CONC 34.8 g/dl (32.0-36.5); MEAN CORPUSCULAR VOLUME 98.1 fl (80.0-96.0); MONO # 0.3 10^3/uL (0.0-0.8); MONO % 6.7 % (2.0-8.0); NEUTROPHILS % 69.7 % (36.0-66.0); PLATELET COUNT, AUTOMATED 171 10^3/uL (150-450); RED BLOOD COUNT 4.22 10^6/uL (4.00-5.40); WHITE BLOOD COUNT 4.3 10^3/uL (4.0-10.0)
[2023-10-16 13:32] LABS: FERRITIN 40.8 NG/ML (7.3-270.7); THYROID STIMULATING HORMONE 2.361 uIU/ML (0.55-4.78)
[2023-10-16 13:35] LABS: FREE T4 1.09 NG/DL (0.89-1.76)
[2023-10-16 13:38] LABS: ALBUMIN 3.7 G/DL (3.2-5.2); BILIRUBIN,TOTAL 0.4 MG/DL (0.3-1.2); CALCIUM LEVEL 9.4 MG/DL (8.5-10.1); CHOLESTEROL RISK RATIO 2.16 (<5); CREATININE FOR GFR 1.07 MG/DL (0.55-1.30); GLOMERULAR FILTRATION RATE 57.1 (>51); HDL CHOLESTEROL 97.4 MG/DL (>40); LDL CHOLESTEROL 100.4 MG/DL (<100); NON-HDL-C 113.6 MG/DL; POTASSIUM SERUM 4.6 MMOL/L (3.5-5.1); TOTAL PROTEIN 6.7 G/DL (5.7-8.2)
[2023-10-16 13:59] LABS: PTH INTACT 59.7 PG/ML (18.5-88.0)
== END ==
LOC: M PLALAB 11:15
PROVIDERS: ATTEND Family Medicine
DX: D72.819 Decreased white blood cell count, unspecified (principal); E55.9 Vitamin D deficiency, unspecified; E53.8 Deficiency of other specified B group vitamins; R73.01 Impaired fasting glucose; I50.32 Chronic diastolic (congestive) heart failure

== ENCOUNTER 2024-04-02 09:43 | Outpatient (RCR) | payer MEDICARE, MEDICAID ==
[~2024-04-02 09:43] MED LIST changes: +GABA-1172 PO; +GABA-1490 PO; +GABA-1635 PO; -GABA-282 PO; -GABA600T4 PO; -GABA800T4 PO; +NYST1POW3 TOP; -NYST1POW9 TOP; +PETR3.5O OU; -REFROIN OU
== END 2024-04-06 | disposition still patient (30) ==
LOC: M PT 09:43
PROVIDERS: ATTEND Family Medicine
DX: M47.816 Spondylosis without myelopathy or radiculopathy, lumbar region (principal)
CPT/HCPCS: 97110; 97161; G0283

== ENCOUNTER 2024-04-11 10:33 | Outpatient (RCR) | payer MEDICARE, MEDICAID | END 2024-05-07 | LOC: M PT 10:33 | PROVIDERS: ATTEND Family Medicine | DX: M47.816 Spondylosis without myelopathy or radiculopathy, lumbar region (principal) ==

== ENCOUNTER → 2024-07-25 | Outpatient (CLI) | payer MEDICARE, MEDICAID | LOC: M PLAIMG 15:52 | PROVIDERS: ATTEND Family Medicine | DX: D86.9 Sarcoidosis, unspecified (principal); R91.8 Other nonspecific abnormal finding of lung field ==

== ENCOUNTER → 2024-07-26 | Outpatient (REF) | payer MEDICARE, MEDICAID | LOC: M SFHCPLAZ 12:49 | PROVIDERS: ATTEND Family Medicine | DX: D86.9 Sarcoidosis, unspecified (principal) ==

== ENCOUNTER → 2024-11-22 | Outpatient (CLI) | payer MEDICARE, MEDICAID ==
[~2024-11-22] MED LIST changes: +PRED-1142 PO; -PRED1TABL PO
== END ==
LOC: M RAD 13:33
PROVIDERS: ATTEND Family Medicine
DX: D86.9 Sarcoidosis, unspecified (principal); R91.8 Other nonspecific abnormal finding of lung field

== ENCOUNTER → 2025-01-01 | Outpatient (CLI) | payer MEDICARE, MEDICAID | LOC: M WHC 10:51 | PROVIDERS: ATTEND Family Medicine | DX: Z12.31 Encounter for screening mammogram for malignant neoplasm of breast (principal); Z53.9 Procedure and treatment not carried out, unspecified reason ==

== ENCOUNTER → 2025-01-17 | Outpatient (CLI) | payer MEDICARE, MEDICAID ==
[2025-01-17 13:59] LABS: BASO # 0.0 10^3/uL (0.0-0.2); BASO % 0.6 % (0.0-1.0); EOS # 0.0 10^3/uL (0.0-0.5); EOS % 0.0 % (0.0-3.0); LYMPH # 0.8 10^3/uL (1.5-5.0); LYMPH % 15.2 % (24.0-44.0); MONO # 0.3 10^3/uL (0.0-0.8); MONO % 5.5 % (2.0-8.0); NEUTROPHILS # 3.9 10^3/uL (1.5-8.5); NEUTROPHILS % 78.5 % (36.0-66.0); PLATELET COUNT, AUTOMATED 214 10^3/uL (150-450)
[2025-01-17 14:02] LABS: ALT/SGPT 27.0 U/L (7.0-40); AST/SGOT 24.0 U/L (<34); CALCIUM LEVEL 10.1 MG/DL (8.5-10.1); CARBON DIOXIDE LEVEL 25.0 MMOL/L (20-31); CHLORIDE LEVEL 103.0 MMOL/L (98-107); CHOLESTEROL LEVEL 223.0 MG/DL (<200); CHOLESTEROL RISK RATIO 1.83 (<5); CREATININE FOR GFR 1.06 MG/DL (0.55-1.30); FREE T4 1.3 NG/DL (0.89-1.76); GLOMERULAR FILTRATION RATE 62.0 (>51); LDL CHOLESTEROL 87.9 MG/DL (<100); MAGNESIUM LEVEL 2.1 MG/DL (1.8-2.4); NON-HDL-C 101.5 MG/DL; POTASSIUM SERUM 5.0 MMOL/L (3.5-5.1); PTH INTACT 32.0 PG/ML (18.5-88.0); SODIUM LEVEL 138.0 MMOL/L (136-145); TRIGLYCERIDES LEVEL 68.0 MG/DL (<150)
[2025-01-17 14:04] LABS: TOTAL 25(OH) VITAMIN D 56.3 NG/ML (20.0-100.0)
== END ==
LOC: M PLALAB 10:01
PROVIDERS: ATTEND Family Medicine
DX: E55.9 Vitamin D deficiency, unspecified (principal); E53.8 Deficiency of other specified B group vitamins; R73.01 Impaired fasting glucose; I50.32 Chronic diastolic (congestive) heart failure; Z79.899 Other long term (current) drug therapy

== ENCOUNTER → 2025-01-17 | Outpatient (CLI) | payer MEDICARE, MEDICAID | LOC: M WHC 10:18 | PROVIDERS: ATTEND Family Medicine | DX: Z12.31 Encounter for screening mammogram for malignant neoplasm of breast (principal); R92.333 Mammographic heterogeneous density, bilateral breasts; M85.89 Other specified disorders of bone density and structure, multiple sites ==